=== PATIENT | female | born 1940 | race Caucasian/White ===

== ENCOUNTER 2017-02-01 13:15 | Inpatient (IN) | payer MEDICARE, OTHER ==
[2017-02-01 13:38] VITALS: BMI 29.4
[2017-02-04] MEDS ORDERED: CEFAZOLIN/Water 2 GM/20 ML SYRINGE ONE (09:44)
[2017-02-04] MEDS ORDERED: Sodium Chloride 0.9% 10 ML ONE (11:31)
[2017-02-04] MEDS ORDERED: Fentanyl 250 MCG/5 ML VIAL ONE (11:33)
[2017-02-04] MEDS ORDERED: Dexamethasone 20 MG/5 ML VIAL ONE (11:52)
[2017-02-04] MEDS ORDERED: Ondansetron HCl/PF 4 MG/2 ML Vial ONE (11:52)
[2017-02-04] MEDS ORDERED: Propofol 200 MG/20 ML VIAL ONE (11:52)
[2017-02-04] MEDS ORDERED: PHENYLEPHRINE-NS 100 MCG/ML 10 ML SYRINGE ONE (11:52)
[2017-02-04] MEDS ORDERED: Glycopyrrolate 0.2 MG/ML 5 ML SYRINGE ONE (11:52)
[2017-02-04] MEDS ORDERED: Promethazine HCl 25 MG/ML VIAL SLOW IVP PRN (12:58)
[2017-02-04] MEDS ORDERED: Ondansetron HCl/PF 4 MG/2 ML Vial IVP PRN ×2 (12:58→13:58)
[2017-02-04] MEDS ORDERED: Promethazine HCl 25 MG/ML VIAL IM PRN ×2 (12:58→13:58)
[2017-02-04] MEDS ORDERED: Fentanyl 100 MCG/2 ML VIAL ONE ×2 (13:31→14:19)
[2017-02-04] MEDS ORDERED: Promethazine HCl 25 MG/ML VIAL ONE (13:34)
[2017-02-04] MEDS ORDERED: HYDROcodone/Acetaminophen 10/325 mg Tablet PO PRN ×2 (13:49)
[2017-02-04] MEDS ORDERED: Acetaminophen/Codeine 30-300mg Tablet PO PRN ×2 (13:49)
[2017-02-04] MEDS ORDERED: tiZANidine HCl 4 MG TAB PO PRN (13:49)
[2017-02-04] MEDS ORDERED: Morphine 4 MG/ML Carpuject SLOW IVP PRN (13:49)
[2017-02-04] MEDS ORDERED: Milk Of Magnesia 30 ML UDCUP PO PRN (13:58)
[2017-02-04] MEDS ORDERED: Mag-Al 1200 mg/1200 mg/30 ML UDCUP PO PRN (13:58)
[2017-02-04] MEDS ORDERED: diphenhydrAMINE 25 MG CAP PO PRN (13:58)
[2017-02-04] MEDS ORDERED: Promethazine HCl 12.5 MG SUPP PR PRN (13:58)
[2017-02-04] MEDS ORDERED: diphenhydrAMINE 50 MG/ML VIAL IVP PRN (13:58)
[2017-02-04] MEDS ORDERED: Ketorolac Tromethamine 30 MG/ML VIAL ONE (14:00)
[2017-02-04] MEDS ORDERED: Cepastat Lozenges 1 LOZ PO PRN (14:00)
--- NOTE | 2017-02-04 15:35 | OP ---
DATE OF SURGERY: 02/04/2017 SURGEON: Lei Rizo M.D. SHOT BLAST EQUIPMENT OPERATOR: Harsha Johnston PA-C. PROCEDURE PERFORMED: Anterior cervical diskectomy C4-5, C5-C6 and C6-C7, interbody arthrodesis, int ravertebral biomechanical device, local morselized autograft, and anterior titanium instrumentation, demineralized bone matrix, C4-C7. PROCEDURE IN DETAIL: The patient was brought into the operating room, intubated. She was positione d supine with the head in modest extension on a gel-filled donut. Incision was made in the right pr ecervical area and dissecting medial to the sternocleidomastoid muscle. We identified the anterior cervical spine and our level was confirmed by x-ray. We debrided extensive anterior osteophytes, pl aced a distraction across the disk spaces and using the operating microscope and microdissection jadiel hniques, completely decompressed at C4-5, C5-6, and C6-7 levels from disk and osteophyte complex karla eath the posterior longitudinal ligament to the level of the dura. Next, the bony endplates were de corticated for the purpose of arthrodesis and appropriately sized intravertebral biomechanical PEEK devices were brought into the field, filled with demineralized bone matrix and local morselized auto graft, and tapped into place securely at C4-5, C5-6, and C6-7. Next, an anterior plate was brought in the field and secured to C5, C6, and C7 using two 14 mm screws at each level. The wound was then extensively irrigated, immaculate hemostasis was secured, and the wound was closed in anatomic laye rs over a drain.
[2017-02-04] MEDS ORDERED: Meclizine HCl 25 MG TAB PO PRN (16:58)
[2017-02-04] MEDS ORDERED: SUMAtriptan Succinate 50 MG TAB PO PRN (17:05)
[2017-02-04] MEDS: CEFAZOLIN/Water 2 GM/20 ML SYRINGE SLOW IVP SCH (17:35)
[2017-02-04] MEDS: Ketorolac Tromethamine 30 MG/ML VIAL IVP SCH (17:35)
[2017-02-04] MEDS: Sodium Chloride 0.9% 1,000 ML IV SCH (17:36)
[2017-02-04] MEDS: TROSPIUM 20 MG TABLET PO SCH (20:51)
[2017-02-04] MEDS ORDERED: Atorvastatin Calcium 20 MG TAB PO SCH (21:00)
[2017-02-04] MEDS ORDERED: Melatonin 3 MG TAB PO SCH (21:00)
[2017-02-04] MEDS ORDERED: Topiramate 25 MG TAB PO SCH (21:00)
[2017-02-05] MEDS: Ketorolac Tromethamine 30 MG/ML VIAL IVP SCH ×3 (00:19→12:21)
[2017-02-05] MEDS: CEFAZOLIN/Water 2 GM/20 ML SYRINGE SLOW IVP SCH (02:26)
[2017-02-05] MEDS: Sodium Chloride 0.9% 1,000 ML IV SCH (05:20)
[2017-02-05] MEDS ORDERED: POTASSIUM 99 MG PO SCH (09:00)
[2017-02-05] MEDS ORDERED: MSM PO SCH (09:00)
[2017-02-05] MEDS ORDERED: CHONDROITIN A PO SCH (09:00)
[2017-02-05] MEDS ORDERED: Cyanocobalamin (Vitamin B-12) 1,000 MCG TAB PO SCH (09:00)
[2017-02-05] MEDS ORDERED: Multivit, Therapeutic 1 TAB PO SCH (09:00)
[2017-02-05] MEDS ORDERED: GLUCOSAMINE PO SCH (09:00)
[2017-02-05] MEDS ORDERED: Fish Oil 1,000 MG CAP PO SCH (09:00)
[2017-02-05] MEDS ORDERED: Calcium Carbonate 500 MG TAB PO SCH (09:00)
[2017-02-05] MEDS: TROSPIUM 20 MG TABLET PO SCH (11:06)
[2017-02-05 16:42] VITALS: BP 152/83; TEMP 98.9
== END 2017-02-05 16:42 | disposition home or self-care (01) | DRG 30 ==
LOC: SURG A 02-04 08:23 → EDSTATUS 02-04 13:15 → SURG B 02-04 15:22
PROVIDERS: ADMIT Neurological Surgery; ATTEND Neurological Surgery
PROC: 0RG20A0 Fusion of 2 or more Cervical Vertebral Joints with Interbody Fusion Device, Anterior Approach, Anterior Column, Open Approach (ICD-10-PCS; principal; 2017-02-04)
DX: M54.12 Radiculopathy, cervical region (principal); M47.892 Other spondylosis, cervical region; I10 Essential (primary) hypertension; E78.5 Hyperlipidemia, unspecified
CPT/HCPCS: 76001; 80048; 85027; 85610; 85730; 93005; 93010; A4216; C1713; C1768; C1776; J1100; J1885; J2405; J2550; J2704; J3010; J3490

== ENCOUNTER 2017-02-21 10:12 | Outpatient (CLI) | payer MEDICARE, OTHER ==
--- NOTE | 2017-02-21 11:31 | RAD ---
CERVICAL SPINE 3 VIEWS: Date: 02/21/17 HISTORY: Postop follow-up. Spondylosis of cervical spine. FINDINGS: Anterior plate and screws transfix C4, C5, C6, and C7 levels. Interbody implants are present at these levels. Posterior alignment is normally maintained. Mild degenerative changes are noted. IMPRESSION: Postoperative changes of the cervical spine as described. POS: YARELIS
== END 2017-02-21 10:13 | disposition home or self-care (01) ==
LOC: TBSIIMAG 10:12
PROVIDERS: ATTEND Physician Assistant
DX: M47.812 Spondylosis without myelopathy or radiculopathy, cervical region (principal); Z98.890 Other specified postprocedural states
CPT/HCPCS: 72040

== ENCOUNTER 2017-04-03 14:36 | Outpatient (CLI) | payer MEDICARE, OTHER ==
--- NOTE | 2017-04-03 16:41 | RAD ---
CERVICAL SPINE THREE VIEWS: History: Cervical spine surgery. Follow up. Comparison: 02-21-17 FINDINGS: Anterior fixation plate remains in place at the C4-5-6-7 levels. Metallic markers associated with int erbody fusion material remain within the confines of the disc spaces at the post-operative levels. Ve rtebral body heights and alignment are maintained. Cervicothoracic junction is intact. IMPRESSION: Stable post-operative appearance of the cervical spine. POS: CORY
== END 2017-04-03 14:37 | disposition home or self-care (01) ==
LOC: TBSIIMAG 14:36
PROVIDERS: ATTEND Neurological Surgery
DX: M47.812 Spondylosis without myelopathy or radiculopathy, cervical region (principal); Z98.1 Arthrodesis status
CPT/HCPCS: 72040

== ENCOUNTER 2017-07-08 07:52 | Outpatient (CLI) | payer MEDICARE, OTHER | END 2017-07-08 07:53 | disposition home or self-care (01) | LOC: BICMAMMO 07:52 | PROVIDERS: ATTEND Family Medicine | DX: Z12.31 Encounter for screening mammogram for malignant neoplasm of breast (principal) | CPT/HCPCS: 77063; 77067 ==

== ENCOUNTER 2018-03-10 13:18 | Outpatient (CLI) | payer MEDICARE, OTHER ==
--- NOTE | 2018-03-10 16:08 | RAD ---
ABDOMEN 2 VIEWS: HISTORY: A 77-year-old female with a history of diarrhea and lower abdominal pain, nausea. FINDINGS: There is prominent dextroscoliosis of the lumbar vertebral column. Small opaque calculus in the uppe r pole of the right kidney, evidence for a renal calculus. No evidence for large or small bowel obst ruction. No free intraperitoneal air. Right lower lung calcified granuloma. IMPRESSION: Severe lumbar spondylosis and dextroscoliosis. A 0.5 cm right upper pole renal calculus. Old granul laila calcification in the right lower lobe. No bowel obstruction or free air or other acute process. POS: [facility]
== END 2018-03-10 13:19 | disposition home or self-care (01) ==
LOC: BICRAD 13:18
PROVIDERS: ATTEND Internal Medicine Gastroenterology
DX: R10.30 Lower abdominal pain, unspecified (principal); R19.7 Diarrhea, unspecified; R11.0 Nausea; M47.816 Spondylosis without myelopathy or radiculopathy, lumbar region; M41.9 Scoliosis, unspecified; N20.0 Calculus of kidney
CPT/HCPCS: 74019

== ENCOUNTER 2018-07-09 11:52 | Outpatient (CLI) | payer MEDICARE, OTHER ==
--- NOTE | 2018-07-09 13:08 | MMO ---
Bilateral MAMMO Bilat Screen [facility]. CLINICAL HISTORY: Patient is 77 years old and is seen for screening. The patient has no family history of breast cancer. The patient has no personal history of cancer. The patient has a history of right Excisional Biopsy at age 62 - benign. VIEWS: The views performed were: bilateral craniocaudal with tomosynthesis and bilateral mediolateral oblique with tomosynthesis. FILMS COMPARED: The present examination has been compared to prior imaging studies performed at [facility] on 07/08/2017, and at [facility] on 01/24/2012, 02/08/2014 and 05/24/2015. MAMMOGRAM FINDINGS: There are scattered fibroglandular densities. There are calcifications seen in the left breast. There are no suspicious masses, suspicious calcifications, or new areas of architectural distortion. IMPRESSION: THERE IS NO MAMMOGRAPHIC EVIDENCE OF MALIGNANCY. A ROUTINE FOLLOW-UP MAMMOGRAM IN 1 YEAR IS RECOMMENDED. THE RESULTS OF THIS EXAM WERE SENT TO THE PATIENT. ACR BI-RADS Category 2 - Benign finding MAMMOGRAPHY NOTE: 1. A negative mammogram report should not delay a biopsy if a dominant of clinically suspicious mass is present. 2. Approximately 10% to 15% of breast cancers are not detected by mammography. 3. Adenosis and dense breasts may obscure an underlying neoplasm.
== END 2018-07-09 11:53 | disposition home or self-care (01) ==
LOC: BICMAMMO 11:52
PROVIDERS: ATTEND Family Medicine
DX: Z12.31 Encounter for screening mammogram for malignant neoplasm of breast (principal)
CPT/HCPCS: 77063; 77067

== ENCOUNTER 2018-07-29 08:09 | Outpatient (CLI) | payer MEDICARE, OTHER ==
--- NOTE | 2018-07-29 08:52 | BD ---
EXAM: DEXA bone density examination HISTORY: Osteoporosis screening COMPARISON: 07/29/2018, 02/10/2014, 01/24/2012 and 07/03/2007 FINDINGS: L1--bone mineral density 1.213 g/sq cm; T score 2.0. Z score 4.2 L2--bone mineral density 1.100 g/sq cm; T score 0.7; Z score 3.1 L3--bone mineral density 1.143 g/sq cm; T score 0.5; Z score 3.1 L4--bone mineral density 1.322 g/sq cm; T score 2.4, Z score 5.0 Total L1-L4--bone mineral density 1.195 g/sq cm; T score 1.3, Z score 3.8 Left femoral neck--bone mineral density0.755; T score -0.8, Z score 1.3 Total proximal left femur--bone mineral density 1.090; T score 1.2, Z score 3.0 Right femoral neck-bone mineral density 0.709; T score -1.3, Z score 0.9 Total proximal right femur-bone mineral density 0.994; T score 0.4, Z score 2.3 This patient has a 10 year WHO fracture risk of a major osteoporotic fracture of 11% and of a hip fra cture of 1.9%. The bone mineral density of the right total proximal femur has declined 2.6% from the previous exam d ated 02/10/2014. IMPRESSION: Based on the WHO criteria, the patient's bone mineral density is consideredOsteopenic. T he patient is at moderate risk for fracture.
== END 2018-07-29 08:10 | disposition home or self-care (01) ==
LOC: BICMAMMO 08:09
PROVIDERS: ATTEND Family Medicine
DX: M85.80 Other specified disorders of bone density and structure, unspecified site (principal)
CPT/HCPCS: 77080

== ENCOUNTER 2018-08-11 18:00 | Emergency (ER) | payer MEDICARE, OTHER ==
[~2018-08-11 18:00] MED LIST: Iopamidol 370 76% 100 ML VIAL ONE
[2018-08-11] MEDS ORDERED: Ondansetron PF 4 MG/2 ML Vial ONE ×2 (18:46→20:26)
[2018-08-11] MEDS ORDERED: Morphine 4 MG/ML VIAL ONE ×2 (18:46→19:50)
[2018-08-11 18:55] LABS: #Basophils 0.1 thou/uL (0.0-0.2); #Eosinphils 0.2 thou/uL (0.0-0.7); #Lymphocytes 2.6 thou/uL (1.20-3.40); #Monocytes 0.8 thou/uL (0.11-0.59); #Neutrophils 5.2 thou/uL (1.40-6.50); %Basophils 1.6 % (0.0-1.0); %Eosinophils 1.8 % (0.0-10.0); %Lymphocytes 29.3 % (21.0-51.0); %Monocytes 8.7 % (0.0-10.0); %Neutrophils 58.6 % (42.0-75.0); Hemoglobin 13.1 g/dL (12.0-16.0); Mean Corpuscular HGB CONC 33.1 g/dL (32.0-36.0); Mean Corpuscular Hemoglobin 33.3 pg (27.0-31.0); Mean Platelet Volume 7.2 fL (7.4-10.4); Platelet Count 246 thou/uL (130-400); RBC Distribution Width 12.1 % (11.5-14.5); Red Blood Cell (RBC) Count 3.93 mill/uL (4.20-5.40); White Blood Cell (WBC) Count 8.9 thou/uL (4.8-10.8)
[2018-08-11 19:02] LABS: ALT (SGPT) 27 U/L (8-55); AST (SGOT) 28 U/L (5-34); Albumin 4.4 g/dL (3.4-4.8); Alkaline Phosphatase 90 U/L (40-150); Anion Gap 16 mmol/L (10-20); BUN (Urea Nitrogen) 27 mg/dL (9.8-20.1); Bilirubin, Total 0.4 mg/dL (0.2-1.2); Calc. Creatinine Clearance 0 mL/min (70-130); Calcium 9.9 mg/dL (7.8-10.44); Carbon Dioxide 22 mmol/L (23-31); Chloride 107 mmol/L (98-107); Estimated GFR-MDRD 50; Globulin 3.4 g/dL (2.4-3.5); Glucose 163 mg/dL (83-110); Lipase 34 U/L (8-78); Potassium 4.1 mmol/L (3.5-5.1); Protein, Total 7.8 g/dL (6.0-8.3); Sodium 141 mmol/L (136-145)
--- NOTE | 2018-08-11 19:34 | CT ---
Contrast-enhanced CT abdomen pelvis. HISTORY: Right lower quadrant pain. TECHNIQUE: Contrast-enhanced CT abdomen and pelvis obtained after administration of IV contrast. Unfo rtunately oral contrast was not given. FINDINGS: Images demonstrate severe dextroscoliosis and lower lumbar degenerative changes. The lung bases demonstrate areas of bibasilar interstitial changes. The liver and spleen are unremarkable. The gallbladder contains a noncalcified approximately 2.8 cm oval lesion possibly presenting gallston e or gallbladder neoplasm. The pancreas is unremarkable. Adrenal glands unremarkable. Right-sided hydroureteronephrosis seen with obstructing proximal right ureteral calculus diameter jalen suring 6 mm. There is extensive fat stranding and surrounding edema surrounding the right kidney and ureter. Nonobstructing left renal calculi seen. The small bowel is unremarkable. Extensive colonic diverticulosis is present. IMPRESSION: Obstructing proximal right ureteral calculus. Transcribed Date/Time: 08/11/2018 8:40 PM
[2018-08-11] MEDS ORDERED: Ketorolac Tromethamine 30 MG/ML VIAL ONE (19:50)
[2018-08-11 20:26] LABS: Bilirubin Negative (Negative); Blood, Urine Trace (Negative); Clarity Slightly Cloudy (Clear); Glucose, Urine (Dipstick) Negative (Negative); Leukocyte Negative (Negative); Nitrite Negative (Negative); Protein, Urine (Dipstick) Negative (Neg-Trace); Specific Gravity, Urine 1.015 (1.005-1.030); Urobilinogen 0.2 mg/dL (0.2-1.0)
[2018-08-11 20:35] LABS: Squamous Epithelial 0-3 HPF (0-3); WBC/HPF 0-3 HPF (0-3)
[2018-08-11 20:36] LABS: Bacteria/HPF 1+ HPF (None Seen); Hyaline Casts/LPF NONE SEEN LPF (0-3 Hyaline)
== END 2018-08-11 21:03 | disposition home or self-care (01) ==
LOC: SCSER 18:00
DX: N13.2 Hydronephrosis with renal and ureteral calculous obstruction (principal); K21.9 Gastro-esophageal reflux disease without esophagitis; E78.5 Hyperlipidemia, unspecified; G43.909 Migraine, unspecified, not intractable, without status migrainosus; I10 Essential (primary) hypertension
CPT/HCPCS: 74177; 80053; 81003; 81015; 83690; 85025; 87086; 96361; 96374; 96375; 96376; J1885; J2270; J2405; Q9967

== ENCOUNTER 2018-08-12 14:54 | Outpatient (CLI) | payer MEDICARE, OTHER ==
[2018-08-12 18:18] LABS: Prothrombin Time 13.7 SEC (12.0-14.7)
[2018-08-12 18:19] LABS: PTT 28.2 SEC (22.9-36.1)
== END 2018-08-12 14:55 | disposition home or self-care (01) ==
LOC: LABBT 14:54
PROVIDERS: ATTEND Urology
DX: Z01.818 Encounter for other preprocedural examination (principal); N20.0 Calculus of kidney
CPT/HCPCS: 85610; 85730; 93005; 93010

== ENCOUNTER 2018-08-13 08:48 | Day surgery (SDC) | payer MEDICARE, OTHER ==
[2018-08-12 16:28] VITALS: BMI 28.3
[2018-08-13] MEDS ORDERED: Ampicillin 2 GM VIAL ONE (10:22)
[2018-08-13] MEDS ORDERED: Levofloxacin 500 mg/D5W 100 ml Premix Bag ONE (10:22)
[2018-08-13] MEDS ORDERED: Sodium Chloride 0.9% 100 ML ONE (10:22)
[2018-08-13 10:38] LABS: INR-International Normal Ratio 1.1; PTT 28.8 SEC (22.9-36.1); Prothrombin Time 14.1 SEC (12.0-14.7)
[2018-08-13] MEDS ORDERED: Iothalamate Meglumine 60% 50 ML VIAL FS ONE (11:34)
--- NOTE | 2018-08-13 12:05 | RAD ---
ABDOMEN ONE VIEW: HISTORY: Follow up right ureteral calculus. Preoperative evaluation. FINDINGS: The previously noted right upper ureteral calculus seen on prior CT scan, on 08/11/2018, may well ove rly the lumbar spine, which is significantly scoliotic, convexed to the right side. Evidence for sma ll, nonobstructing left renal calculi. IMPRESSION: 1. Previously noted right ureteral calculus may well be obscured by the overlying dextroscoliotic mauricio mbar spine. 2. Small, nonobstructing left renal calculi. 3. A small phlebolith is noted just at the right lateral aspect, adjacent to L4. POS: OFF
[2018-08-13] MEDS ORDERED: Phenazopyridine HCl 97.5 MG TABLET ONE (12:56)
--- NOTE | 2018-08-13 13:09 | RAD ---
Retrograde ureterogram intraoperative fluoroscopy HISTORY: Ureteral obstruction. FINDINGS: Intraoperative fluoroscopy was provided for retrograde study is performed by Dr. Marie garcia. Spot fluoroscopic images show contrast opacification of a mildly distended right renal collecting system and ureter. Final image shows double pigtail catheter overlying the course of the r ight ureter with decompression of the renal collecting system. Fluoroscopy time 0.3 minutes.
[2018-08-13] MEDS ORDERED: Promethazine HCl 25 MG/ML VIAL ONE (14:11)
[2018-08-13] MEDS ORDERED: Ondansetron PF 4 MG/2 ML Vial ONE (15:21)
[2018-08-13] MEDS ORDERED: ePHEDrine 50 MG/ML VIAL ONE (15:21)
[2018-08-13] MEDS ORDERED: PROPOFOL 200 MG/20 ML VIAL ONE (15:21)
[2018-08-13] MEDS ORDERED: Lidocaine 1% PF 5 ML VIAL ONE (15:21)
--- NOTE | 2018-08-13 16:20 | OP ---
DATE OF PROCEDURE: 08/13/2018 PREOPERATIVE DIAGNOSES: 1. A 77-year-old female with history of right hydronephrosis, secondary to proximal ureteral stone 6-7 mm at L2 with perinephric stranding. 2. Left punctate nonobstructing renal calculi, 3-4 in number. No evidence of left hydronephrosis. 3. Severe scoliosis. 4. Right L3 extra ureteral calcific density. POSTOPERATIVE DIAGNOSES: 1. A 77-year-old female with history of right hydronephrosis, secondary to proximal ureteral stone 6-7 mm at L2 with perinephric stranding. 2. Left punctate nonobstructing renal calculi, 3-4 in number. No evidence of left hydronephrosis. 3. Severe scoliosis. 4. Right L3 extra ureteral calcific density. PROCEDURES PERFORMED: 1. Cystoscopy. 2. Right retrograde pyelogram. 3. A 6 x 24 double-J ureteral stent placement. 4. Retrieval of bladder stone. ANESTHESIA: General. COMPLICATIONS: None apparent. DISPOSITION: To recovery room in stable condition. INDICATIONS FOR PROCEDURE AND HISTORY: Ms. Cristobal is a 77-year-old female with history of kidney stone. She recently transitioned care in April. As she is known to have kidney stones, she was advised regarding CT; however, not yet obtained. However, she did present to an emergency room on 08/11 due to right flank pain, demonstrating 6- to 7-mm right proximal ureteral stone with hydronephrosis , perinephric stranding, and left nonobstructing renal calculi. As her UA suspicious for UTI component, I informed her to proceed with ureteral stent placement and elective ureteroscopy and laser lithotripsy at a later date. Risks and complications of the procedure were reviewed with her in detail including, but not limited to, bleeding, pain, infection, injury to adjacent organs, urosepsis. Final urine culture is pending. Thus far, preliminary urine culture has been negative. DESCRIPTION OF PROCEDURE: After an informed consent was signed, the patient was taken to the operating room and placed in a dorsal lithotomy position with the genital area prepped and draped in the usual surgical sterile fashion. A 21- Bahamian cystoscope was utilized for cystoscopy. Upon entering the bladder, the trigone was deviated due to grade 3-4 cystocele. Bimanual pressure had to be utilized to see the trigone with a 30-degree lens. With the reduction of her cystocele, her UO was identified and an open-ended catheter was passed. A retrograde pyelogram demonstrated some hydronephrotic component. She does have an evidence of extra ureteral retroperitoneal calcific density at the level of L3 on retrograde pyelogram. This is outside the ureter. It appeared that there was a faint calcific density, which appeared to have migrated into the renal pelvis; however, this was somewhat hazy with contrast. A 0.035 Sensor wire was able to be passed without difficulty and a 6 x 24 double-J ureteral was passed. There was mild resistance due to her scoliosis; however, the stent was passed atraumatically with no significant issues. Final coil was seen in the renal pelvis and distal coil with adequate redundancy in the bladder. There was a tiny 2-mm stone in the bladder, which was retrieved for chemical analysis. The bladder completely emptied. She tolerated the procedure well. She will continue her ciprofloxacin, 7-day course provided so far as final culture needs to be reviewed. She will follow up with me tomorrow to preop for stone treatment, ureteroscopy, laser lithotripsy at a later date. Possible tentative date next Saturday if culture remains negative. She is discharged with ciprofloxacin refill and has been provided [place] pain medication yesterday in our office. Continue Detrol due to pre-existing OAB. Job ID: [id number] MTDD
== END 2018-08-13 16:25 | disposition home or self-care (01) ==
LOC: SDC 08:48
PROVIDERS: ATTEND Urology
PROC: 0T9780Z Drainage of Left Ureter with Drainage Device, Via Natural or Artificial Opening Endoscopic (ICD-10-PCS; principal; 2018-08-13)
PROC: 0TCB8ZZ Extirpation of Matter from Bladder, Via Natural or Artificial Opening Endoscopic (ICD-10-PCS; 2018-08-13)
PROC: 0T778DZ Dilation of Left Ureter with Intraluminal Device, Via Natural or Artificial Opening Endoscopic (ICD-10-PCS; 2018-08-13)
DX: N13.2 Hydronephrosis with renal and ureteral calculous obstruction (principal); N21.0 Calculus in bladder; I10 Essential (primary) hypertension; M41.9 Scoliosis, unspecified; E78.5 Hyperlipidemia, unspecified; Z79.82 Long term (current) use of aspirin; Z79.899 Other long term (current) drug therapy
CPT/HCPCS: 36415; 74018; 74420; 82365; 85610; 85730; 88300; C1758; C1769; J0290; J1956; J2001; J2405; J2550; J2704; J3490; Q9961

== ENCOUNTER → 2018-08-20 | Day surgery (SDC) | payer MEDICARE, OTHER ==
[2018-08-14 12:14] VITALS: BMI 28.3
[~2018-08-20] MED LIST changes: +Ampicillin 2 GM VIAL ONE; +Dexamethasone 20 MG/5 ML VIAL ONE; +Fentanyl 100 MCG/2 ML VIAL ONE; +Glycopyrrolate 0.2 MG/ML 5 ML SYRINGE ONE; -Iopamidol 370 76% 100 ML VIAL ONE; +Iothalamate Meglumine 60% 50 ML VIAL FS ONE; +Levofloxacin 500 mg/D5W 100 ml Premix Bag ONE; +Lidocaine 1% PF 5 ML VIAL ONE; +Ondansetron PF 4 MG/2 ML Vial ONE; +Oxybutynin 5 MG TAB ONE; +PROPOFOL 200 MG/20 ML VIAL ONE; +Phenazopyridine HCl 97.5 MG TABLET ONE; +Promethazine HCl 25 MG/ML VIAL ONE; +Rocuronium Bromide 10 MG/ML (10ML VIAL) ONE; +Sodium Chloride 0.9% 100 ML ONE; +ePHEDrine 50 MG/ML VIAL ONE
--- NOTE | 2018-08-20 10:42 | RAD ---
TWO VIEWS CHEST: Comparison: None. History: Pre-operative radiograph. FINDINGS: Two views of the chest show normal sized cardiomediastinal silhouette. There is no evidence of consol idation, mass, or pleural effusion. Degenerative changes and post-surgical changes are seen in the sp ine. IMPRESSION: No evidence of acute cardiopulmonary disease. POS: H
--- NOTE | 2018-08-20 10:44 | RAD ---
KUB: Date: 08/20/18 HISTORY: Preoperative evaluation. FINDINGS/IMPRESSION: Comparison made with exam of 08/13/18. There has been interval placement of a right-sided ureteral stent. There is a questionable calculus i n the right proximal ureter at L3-4 level. Tiny calcifications along the distal aspect of the stent likely correspond to the pelvic phleboliths on the CT scan of 08/11/18. There are a couple of calcific densities in the projection of the right kidney. No right renal calcul i seen on the CT scan of 08/11/18. The left renal calculi noted on the CT scan are likely obscured by bowel contents. There are degenerative changes with dextroscoliosis of the lumbar spine. POS: YARELIS
--- NOTE | 2018-08-20 12:42 | OP ---
DATE OF PROCEDURE: 08/20/2018 PREOPERATIVE DIAGNOSES: A 77-year-old female with; 1. Right proximal ureteral calculi with hydronephrosis, 6 mm at the level of L2. 2. Right extra-ureteral retroperitoneal calcification adjacent to L4. 3. Left punctate nonobstructing renal lithiasis, about 3-4 in number, nonobstructing. POSTOPERATIVE DIAGNOSES: A 77-year-old female with; 1. Right proximal ureteral calculi with hydronephrosis, 6 mm at the level of L2. 2. Right extra-ureteral retroperitoneal calcification adjacent to L4. 3. Left punctate nonobstructing renal lithiasis, about 3-4 in number, nonobstructing. PROCEDURES PERFORMED: 1. Cystoscopy. 2. Right retrograde pyelogram. 3. Dilation of right intramural ureter. 4. Rigid ureteroscopy. 5. Flexible ureteroscopy. 6. Pyeloscopy. 7. Laser lithotripsy of renal calculi. 6 x 24 double-J ureteral stent exchange on [facility]. ANESTHESIA: General. COMPLICATIONS: None apparent. DISPOSITION: To recovery room in stable condition. SPECIMEN: Stone for chemical analysis. INDICATIONS FOR PROCEDURE AND HISTORY: Ms. Cristobal is a 77-year-old female, who came to establish care with ks due to history of kidney stones. She subsequently had a CT in the emergency room on 08/11, demonstrating right hydronephrosis due to 6- mm proximal ureteral calculi at the level of L2 with perinephric stranding and hydronephrosis. She has multiple left punctate nonobstructing renal calculi. Of note, she has right extra-ureteral retroperitoneal calcification at the level of L4, not within the ureter. She underwent ureteral stent placement and presents today for ureteroscopy and laser lithotripsy. Preop KUB demonstrates proximal migration of the right proximal ureteral stone into the mid upper pole. The right extra-ureteral calcification seen on KUB and again this is outside the ureter. Risks and complications and indications for the procedure were reviewed with her in detail including, but not limited to, bleeding, pain, infection, injury to adjacent organs, urosepsis, possible secondary procedure, ureteral, renal, and bladder injury, stricture formation was reviewed and she desired to proceed without reservation. DESCRIPTION OF PROCEDURE: After an informed consent was signed, the patient was taken to the operating room, placed in a dorsal lithotomy position with the genital area prepped and draped in the usual surgical sterile fashion. Bilateral RAJENDRA hose SCDs and broad-spectrum antibiotics were provided including mitral valve prolapse prophylaxis with 2 g of ampicillin. A 21-Singaporean cystoscope was utilized for cystoscopy, retrieved the previous existing ureteral stent, and this was removed to the level of the meatus. A 0.035 Sensor wire was passed through the stent into the right upper pole. The stent was completely removed. At this time, we attempted to pass a 10-Singaporean dual-lumen access sheath; however, there was some resistance at the intramural ureter. Therefore, I did not forcibly engage. At this time, we transitioned to a rigid ureteroscope to stage the distal ureter to rule out occult urolithiasis. The ureter appeared to be grossly unremarkable, although she did have a stent. It appears that she is not passively dilated enough. There was no trauma to the intramural ureter itself. I was able to negotiate the rigid ureteroscope past this and clear her [id number]-[id number] ureter without any stone debris. The ureteroscope was then subsequently removed. As there was a narrowing of the intramural ureter, not allowing the Navigator of the 10-Singaporean catheter to pass , we then subsequently transitioned back to a cystoscope and using a [employer] 4-cm 12-Singaporean balloon dilator, we dilated the intramural ureter and just proximal to this in 2 segments. Pressure was held for about 1 to 2 minutes sequentially. After subsequent dilatation, which was performed under fluoroscopic guidance, the balloon was deflated. Subsequently, I was able to pass a 10-Singaporean dual-lumen access sheath without any issues to the level of the proximal ureter. A second safety wire, 0.035 Sensor wire, was then passed into the right upper pole. An 11/13-Singaporean x 28 cm Navigator was subsequently passed without any resistance. This was passed to the level of the proximal ureter UPJ region. Flexible ureteroscope was then advanced. I saw the stone in the left upper to mid pole. It appeared to have 2 stones adjacent to them and we laser lithotripsied the stone with 200 micron laser fiber at the setting. Using a Zero Tip Nitinol basket, stone fragments were retrieved and a fragment of it was sent for chemical analysis. Pyeloscopy demonstrated renal papilla Krishna plaque, consistent with recurrent stone former. I did not see any other further stone nidus amenable to treatment. The ureter was surveyed, which demonstrated no evidence of ureteral mucosal trauma nor further ureteral calculi of concern. I re-staged the intramural ureter, which demonstrated changes consistent with the dilatation, although she does not have obvious ureteral stricture in the intramural ureter, she required dilatation to allow passage of navigators and ureteroscope. There was no evidence of ureteral mucosa perforation of concern. A 6 x 24 double-J ureteral stent was passed without difficulty and dangler was left in situ. Bladder completely emptied. Good coil was seen in the kidney and bladder. She tolerated the procedure well and transported to the recovery room in stable condition. She is discharged with Colace 100 mg 1 p.o. b.i.d., AZO p.r.n., amoxicillin x1 6 hours after procedure for endocarditis prophylaxis and ciprofloxacin until followup appointment one p.o. b.i.d. She was provided [place] 5/325 #30, 1-2 p.o. q.6-8 h. p.r.n. She will return to clinic next for stent pull on dangler. Job ID: [id number] [facility]
--- NOTE | 2018-08-20 15:18 | RAD ---
RIGHT SIDED RETROGRADE PYELOGRAM: Date: 08/20/18 HISTORY: Stent removal. FINDINGS/IMPRESSION: Comparison made with KUB from same date. 6 spot fluoroscopic views from a right retrograde pyelogram demonstrate interval replacement of the r ight ureteral stent since the earlier exam of the same date. The final image demonstrates a double pi gtail catheter in the right ureter with incomplete looping of the distal pigtail. POS: CORY
== END ==
LOC: SDC 07:40
PROVIDERS: ATTEND Urology
PROC: 0TF38ZZ Fragmentation in Right Kidney Pelvis, Via Natural or Artificial Opening Endoscopic (ICD-10-PCS; principal; 2018-08-20)
PROC: 0T768DZ Dilation of Right Ureter with Intraluminal Device, Via Natural or Artificial Opening Endoscopic (ICD-10-PCS; 2018-08-20)
DX: N13.2 Hydronephrosis with renal and ureteral calculous obstruction (principal); I10 Essential (primary) hypertension; G43.909 Migraine, unspecified, not intractable, without status migrainosus; E78.5 Hyperlipidemia, unspecified; M47.816 Spondylosis without myelopathy or radiculopathy, lumbar region; M41.20 Other idiopathic scoliosis, site unspecified; Z79.82 Long term (current) use of aspirin; Z79.899 Other long term (current) drug therapy
CPT/HCPCS: 52356; 71046; 74018; 74420; 82365; 88300; C1758; C1769; J0290; J1100; J1956; J2001; J2405; J2550; J2704; J3010; J3490; Q9961

== ENCOUNTER 2018-08-28 15:55 | Outpatient (CLI) | payer MEDICARE, OTHER ==
--- NOTE | 2018-08-28 16:24 | CT ---
CT abdomen and pelvis noncontrast HISTORY: Renal stones. Recent lithotripsy and stent removal. Worsening right flank pain. COMPARISON: 08/11/2018. FINDINGS: There is [id number] distention of the right renal collecting system and ureter to the ureterovesicular junction, where no stone or other hyperdense abnormality is apparent. Small phleboliths are evident within the retroperitoneum and pelvis outside of the course of each urinary t ract. Within a calyx of the posterior aspect of the right kidney, a tiny stone and very small amount of winston cific debris remain. The 7 small calcifications within nondilated calyces of the left kidney are stable. Small angiomyolip laila at the inferior pole of the left kidney and small right renal cyst are stable. Lack of contrast limits evaluation for other abnormalities. 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 Hyperdense stone within the gallbladder lumen with persistent gallbladder distention. There are subtle stranding in the right perirenal and periureteral fat with some stranding around the urinary bladder also, likely related to recent instrumentation. Small amount of gas within the nondependent portion of the bladder. IMPRESSION: While there is mild right hydroureteronephrosis, there is no stone apparent or other caus e evident. Probably residual edema from recent instrumentation. Tiny right renal calculus remains. Nonobstructing left renal calculi. Cholelithiasis. Other chronic-type findings are stable. Findings were discussed with Dr. Padron at 1606 hours. Code CR.
== END 2018-08-28 15:56 | disposition home or self-care (01) ==
LOC: CT 15:55
PROVIDERS: ATTEND Urology
DX: N20.2 Calculus of kidney with calculus of ureter (principal); N13.30 Unspecified hydronephrosis; K80.20 Calculus of gallbladder without cholecystitis without obstruction; D17.71 Benign lipomatous neoplasm of kidney; N28.89 Other specified disorders of kidney and ureter; N28.1 Cyst of kidney, acquired
CPT/HCPCS: 74176

== ENCOUNTER 2018-08-28 17:45 | Inpatient (IN) | payer MEDICARE, OTHER ==
[2018-08-28] MEDS ORDERED: Mag-Al 1200 mg/1200 mg/30 ML UDCUP PO PRN (18:08)
[2018-08-28] MEDS ORDERED: Promethazine HCl 25 MG SUPP PR PRN (18:08)
[2018-08-28] MEDS ORDERED: Zolpidem Tartrate 5 MG TAB PO PRN (18:08)
[2018-08-28] MEDS ORDERED: HYDROcodone/Acetaminophen 7.5/325 mg Tablet PO PRN ×2 (18:08)
[2018-08-28] MEDS ORDERED: Morphine 4 MG/ML VIAL SLOW IVP PRN (18:08)
[2018-08-28] MEDS ORDERED: hydrALAZINE 20 MG/ML VIAL SLOW IVP PRN ×2 (18:08)
[2018-08-28] MEDS ORDERED: diphenhydrAMINE 25 MG CAP PO PRN (18:08)
[2018-08-28] MEDS ORDERED: Morphine 2 MG/ML SYRINGE SLOW IVP PRN (18:18)
[2018-08-28 18:42] LABS: #Basophils 0.1 thou/uL (0.0-0.2); #Eosinphils 0.3 thou/uL (0.0-0.7); #Lymphocytes 1.9 thou/uL (1.20-3.40); #Monocytes 1.7 thou/uL (0.11-0.59); #Neutrophils 11.8 thou/uL (1.40-6.50); %Basophils 0.5 % (0.0-1.0); %Eosinophils 1.8 % (0.0-10.0); %Lymphocytes 12.2 % (21.0-51.0); %Monocytes 10.5 % (0.0-10.0); Hemoglobin 11.5 g/dL (12.0-16.0); Mean Corpuscular HGB CONC 32.8 g/dL (32.0-36.0); Mean Corpuscular Hemoglobin 33.3 pg (27.0-31.0); Mean Platelet Volume 6.5 fL (7.4-10.4); Platelet Count 346 thou/uL (130-400); RBC Distribution Width 11.2 % (11.5-14.5); Red Blood Cell (RBC) Count 3.45 mill/uL (4.20-5.40); White Blood Cell (WBC) Count 15.7 thou/uL (4.8-10.8)
[2018-08-28 19:02] LABS: Anion Gap 13 mmol/L (10-20); BUN (Urea Nitrogen) 18 mg/dL (9.8-20.1); Calc. Creatinine Clearance 0 mL/min (70-130); Calcium 9.6 mg/dL (7.8-10.44); Carbon Dioxide 24 mmol/L (23-31); Chloride 99 mmol/L (98-107); Estimated GFR-MDRD 69; Glucose 130 mg/dL (83-110); Potassium 4.2 mmol/L (3.5-5.1); Sodium 132 mmol/L (136-145)
[2018-08-28] MEDS ORDERED: Ondansetron PF 4 MG/2 ML Vial SLOW IVP PRN (20:25)
[2018-08-28] MEDS: Sodium Chloride 0.9% 1,000 ML IV SCH (20:30)
[2018-08-28] MEDS: Docusate 100 MG CAP PO SCH (20:30)
[2018-08-28] MEDS: Famotidine/PF 20 mg/2ml Vial SLOW IVP SCH (20:30)
[2018-08-28] MEDS: cefOXitin 1.5 GM in Sodium Chloride 0.9% 100 ML IVPB SCH (20:31)
[2018-08-28] MEDS ORDERED: ZEAXANTHIN EXT PO SCH (21:00)
[2018-08-28] MEDS ORDERED: Meclizine HCl 25 MG TAB PO PRN (21:00)
[2018-08-28] MEDS ORDERED: LUTEIN EXTRACT PO SCH (21:00)
[2018-08-28 22:50] VITALS: BMI 28.3
[2018-08-28 23:49] LABS: Bilirubin Negative (Negative); Blood, Urine Small (Negative); Clarity CLEAR (Clear); Glucose, Urine (Dipstick) Negative (Negative); Leukocyte Small (Negative); Nitrite Positive (Negative); Protein, Urine (Dipstick) Negative (Neg-Trace); Specific Gravity, Urine 1.005 (1.002-1.036); pH, Urine 6.5 (5.0-9.0)
[2018-08-28 23:52] LABS: Bacteria/HPF 4+ HPF (None Seen); Hyaline Casts/LPF 0-3 HYALINE CAST LPF (0-3 Hyaline); RBC/HPF 0-3 HPF (0-3); Squamous Epithelial None Seen HPF (0-3)
--- NOTE | 2018-08-29 02:02 | CON ---
DATE OF CONSULTATION: 08/28/2018 PRIMARY CARE PHYSICIAN: Shanika Vallecillo MD. HISTORY OF PRESENT ILLNESS: Ms. Cristobal is a 77-year-old female who presented to establish care with me due to history of recurrent kidney stone. She was advised regarding surveillance imaging. However, she was provided a work-in appointment as she presented to the emergency room demonstrating right 7 mm proximal ureteral calculi with perinephric stranding. She has multiple left nonobstructing renal calculi. She underwent cysto, right retrograde stent, underwent subsequent ureteroscopy, laser lithotripsy uneventfully on August 20, 2018. She was seen in my office this morning for stent pull on as there was endoscopic clearance. However, she called back in the afternoon complaining of right flank pain with nausea. Therefore, CT stone protocol was obtained. CT demonstrates resolution of her ureteral calculi. There was no evidence of ureteral calculi, however, she has hydroureteronephrosis to the level of the UVJ. This is most likely due to mucosal edema. We discussed options of observation with pain management as there is no stone nidus of concern versus observation admission and replacement of stent. Due to significant pain, she desires admission to the hospital. She has been afebrile. Pre-cystoscopy urine culture negative. PAST MEDICAL HISTORY: Includes hypertension, severe scoliosis; mitral valve prolapse using prophylaxis; history of chest pain, however, normal stress test and echo; overactive bladder; diverticulosis; history of lymphocytic colitis; migraines; hyperlipidemia; vitamin D deficiency; and recurrent kidney stones. PAST SURGICAL HISTORY: Total abdominal hysterectomy; BSO secondary to endometriosis; colonoscopy 2001, 2012, 2015; cervical disk surgery, January 2017; left knee cartilage repair; cystoscopy, left retrograde, 6 x 24 stent, retrieval of small bladder stone on August 13, 2018; cysto, right, dilation of ureter; ureteroscopy; pyeloscopy; laser lithotripsy, 6 x 24 double-J ureteral stent exchange, August 20, 2018; August 28, 2018 stent removal on . FAMILY HISTORY: Positive for lymphoma, CVA, prediabetic siblings. SOCIAL HISTORY: Nonsmoker. She lives with her spouse who is also a patient of mine. HOME MEDICATIONS: Include; 1. [place] 5/325. 2. Colace. 3. Azo. 4. Ciprofloxacin, which she recently discontinued. 5. Simvastatin. 6. Sumatriptan. 7. Zofran. 8. Detrol LA. 9. Meclizine. 10. Fish oil. 11. Glucosamine. 12. Vitamin D. 13. Enalapril. 14. Metoprolol. 15. Procardia. ALLERGIES: NO KNOWN DRUG ALLERGIES. PHYSICAL EXAMINATION: VITAL SIGNS: Today in my office, she is afebrile. Pain rated 8/10. GENERAL: The patient is somewhat in distress due to right lower quadrant abdominal discomfort; however, conversational, unable to ambulate. HEENT: Grossly unremarkable. HEART: Consistent with murmur. LUNGS: Clear. ABDOMEN: Soft, subjective discomfort in the right lower quadrant with no rigidity, no rebound. : Demonstrates atrophic vaginitis. EXTREMITIES: No cyanosis, clubbing, or edema. PERTINENT IMAGING STUDIES: 1. CT, August 11, demonstrates right hydroureteronephrosis with proximal right ureteral calculi 6 to 7 mm at L2 with perinephric stranding. There is an extra ureteral calculi in the right retroperitoneum. Left nonobstructing renal calculi, multiple, punctate, 3 to 4 in number, largest 6 to 7 mm, linear. 1. CT stone protocol, August 28, 2018, demonstrates right hydroureteronephrosis to the level of the bladder with no evidence of ureteral calculi. Faint punctate calcific density in the right lower pole. Stable multiple left renal lithiasis, punctate in caliber, largest linear about 7 mm. No evidence of left hydronephrosis. 2. KUB previously demonstrates severe lumbar scoliosis. PERTINENT LABORATORY DATA: White count, August 11, is 8.9; hemoglobin 13; and platelet 246. INR, PTT are unremarkable. Creatinine is 1.0. Urinalysis, August 11, demonstrates 4 to 6 rbc's. Culture negative. IMPRESSION AND PLAN: Ms. Cristobal is a 77-year-old female, with history of recurrent kidney stone, recently presented with right proximal ureteral calculi discomfort status post staged stent, ureteroscopy, laser lithotripsy. We did have some difficulty passing a ureteroscope in the intramural ureter despite having an indwelling ureteral stent. She was balloon dilated in the intramural ureter. Stone retrieval was uneventful, with resolution of stone nidus of concern. She has flank pain most likely due to mucosal edema. Recommend observation, pain management, I will reassess her pain tomorrow. If she is pain-free, I will observe. If she has persistent discomfort, she is advised regarding cysto, right retrograde, replacement of stent. We will obtain labs on arrival, recheck UA C and S. Broad-spectrum antibiotics will be provided. Job ID: [id number] MTDD
[2018-08-29] MEDS: Sodium Chloride 0.9% 1,000 ML IV SCH ×3 (04:31→21:11)
[2018-08-29] MEDS: cefOXitin 1.5 GM in Sodium Chloride 0.9% 100 ML IVPB SCH ×3 (04:31→20:59)
[2018-08-29 05:26] LABS: Hemoglobin 10.4 g/dL (12.0-16.0); Mean Corpuscular HGB CONC 33.1 g/dL (32.0-36.0); Mean Corpuscular Hemoglobin 34.2 pg (27.0-31.0); Mean Platelet Volume 8.5 fL (7.4-10.4); Platelet Count 249 thou/uL (130-400); RBC Distribution Width 12.3 % (11.5-14.5); Red Blood Cell (RBC) Count 3.03 mill/uL (4.20-5.40); White Blood Cell (WBC) Count 9.2 thou/uL (4.8-10.8)
[2018-08-29 05:33] LABS: Anion Gap 12 mmol/L (10-20); BUN (Urea Nitrogen) 13 mg/dL (9.8-20.1); Calc. Creatinine Clearance 86 mL/min (70-130); Calcium 8.9 mg/dL (7.8-10.44); Carbon Dioxide 22 mmol/L (23-31); Chloride 106 mmol/L (98-107); Estimated GFR-MDRD 89; Glucose 101 mg/dL (83-110); Potassium 4.2 mmol/L (3.5-5.1); Sodium 136 mmol/L (136-145)
--- NOTE | 2018-08-29 07:33 | PRG ---
DATE OF SERVICE: 08/29/2018 SUBJECTIVE: The patient has persistent right lower quadrant pain, had some nausea. Her last pain medication was last night, however, feels that her pain is coming back. She denies chills or fever. OBJECTIVE: VITAL SIGNS: Stable. She is afebrile with temperature of 98, pulse 91, respiratory rate 16, oxygen saturation 95, and blood pressure 108/71. ABDOMEN: Soft. Subjective discomfort in the right lower quadrant. PERTINENT LABORATORY DATA: White count decreased from 15 to 9.2, hemoglobin 10 , and platelets 249. No significant shift. Creatinine stable at 0.6, sodium 136. UA demonstrates small blood, positive nitrites, small leukocytes, 0 to 3 rbc's, 7 to 10 wbc's, no epithelials, and 4+ bacteria. Urine culture is pending. IMPRESSION AND PLAN: Ms. Cristobal is a pleasant 77-year-old female with history of recurrent urolithiasis, she underwent right ureteroscopy, laser lithotripsy, dilation of right intramural ureter on August 20. Status post stent pull, however, developed intractable right flank pain. Staging CT demonstrates no residual ureteral stone nidus of concern, however, has hydroureteronephrosis likely due to mucosal edema. The patient is n.p.o. for cysto replacement of right ureteral stent. Continue broad-spectrum antibiotics. will reassess the patient in this afternoon after stent. If clinically stable, pain improved, will consider discharge with broad-spectrum antibiotic therapy with close followup to review final sensitivity. patient agrees. Job ID: [id number] MTDD
[2018-08-29] MEDS ORDERED: Fentanyl 100 MCG/2 ML VIAL ONE (08:38)
[2018-08-29] MEDS ORDERED: Scopolamine 1.5 mg/72 hour Patch ONE (09:01)
[2018-08-29] MEDS ORDERED: Iothalamate Meglumine 60% 50 ML VIAL FS ONE (09:22)
[2018-08-29] MEDS ORDERED: cefOXitin 2 GM VIAL ONE (09:27)
[2018-08-29] MEDS ORDERED: Ampicillin 2 GM in Sodium Chloride 0.9% 100 ML IVPB SCH (10:00)
[2018-08-29] MEDS ORDERED: HYDROmorphone 2 MG/ML VIAL SLOW IVP PRN (10:03)
[2018-08-29] MEDS ORDERED: Meperidine HCl/PF 25 MG/ML VIAL SLOW IVP PRN (10:03)
[2018-08-29] MEDS ORDERED: Promethazine HCl 25 MG/ML VIAL IM PRN (10:03)
[2018-08-29] MEDS ORDERED: Ondansetron HCl/PF 4 MG/2 ML Vial IVP PRN (10:03)
[2018-08-29] MEDS ORDERED: Promethazine HCl 25 MG/ML VIAL SLOW IVP PRN (10:03)
--- NOTE | 2018-08-29 10:33 | RAD ---
RETROGRADE PYELOGRAM: Date: 08/29/18 HISTORY: Stent placement. FINDINGS: Single film is presented for interpretation, which shows a right ureteral stent in good position. IMPRESSION: Good position of right ureteral stent. POS: [facility]
[2018-08-29] MEDS ORDERED: AMOXicillin 250 MG CAP PO SCH (10:45)
[2018-08-29] MEDS: Calcium Carbonate 500 MG TAB PO SCH (12:27)
[2018-08-29] MEDS: Floranex Packet PO SCH (12:27)
[2018-08-29] MEDS: Famotidine/PF 20 mg/2ml Vial SLOW IVP SCH (12:28)
[2018-08-29] MEDS: Docusate 100 MG CAP PO SCH ×2 (12:28→21:10)
[2018-08-29] MEDS: Tamsulosin HCl 0.4 MG CAP PO SCH (12:28)
--- NOTE | 2018-08-29 15:56 | OP ---
DATE OF PROCEDURE: 08/28/2018 PREOPERATIVE DIAGNOSES: 1. A 77-year-old female with history of recurrent kidney stones, history of right ureteral calculi, 7 mm, status post ureteroscopy, laser lithotripsy, stent placement, dilation of intramural ureter. 2. Status post stent pull with right hydroureteronephrosis. POSTOPERATIVE DIAGNOSES: 1. A 77-year-old female with history of recurrent kidney stones, history of right ureteral calculi, 7 mm, status post ureteroscopy, laser lithotripsy, stent placement, dilation of intramural ureter. 2. Status post stent pull with right hydroureteronephrosis. PROCEDURES PERFORMED: Cystoscopy, limited right retrograde pyelogram, 6 x 24 double-J ureteral stent exchange, rigid ureteroscopy, biopsy of right intramural ureteral mucosal flap obstructing. ANESTHESIA: LMA. COMPLICATIONS: None apparent. DISPOSITION: To recovery room in stable condition. INTRAOPERATIVE FINDINGS: 1. Bladder demonstrates right periureteral bullous edema consistent with recent indwelling ureteral stents. Retrograde limited pyelogram demonstrated questionable filling defect. 2. Right ureteroscopy of the intramural ureter demonstrates mucosal flap/ inflammation resulting in obstruction. INDICATIONS FOR PROCEDURE AND HISTORY: Ms. Cristobal is a 77-year-old female with history of recurrent kidney stones. She presented with intractable pain due to right proximal ureteral stone, underwent stent placement. Her preop urine culture was negative. She underwent staged ureteroscopy laser lithotripsy. The stone was pushed up into the renal collecting system and laser lithotripsied uneventfully. She did require intramural dilatation of the ureter, despite having an indwelling ureteral stent for 1 week as it did not passively dilate. Previous Balloon Dilation was uneventful. She underwent ureteral stent removal in my office yesterday, however, presented with intractable right flank pain. CT demonstrates no evidence of ureteral calculi, however, right hydroureteronephrosis to the level of the UVJ. As I suspect mucosal edema, and due to her persistent discomfort, she presents for stent placement. Risks and complications and indications of the procedure were reviewed with her in detail including, but not limited to, bleeding, pain, infection, injury to adjacent organs, urosepsis, stricture formation, ureteral and bladder injury was reviewed. She desired to proceed. She was previously on ciprofloxacin periprocedural, With preop urine culture negative. DESCRIPTION OF PROCEDURE: After an informed consent was signed, the patient was taken to the operating room,, placed in a dorsal lithotomy position with the genital area prepped and draped in the usual surgical sterile fashion. A 21-Swedish cystoscope was utilized for cystoscopy. Upon entering the bladder, there was no stone debris. There was periureteral edema of the right ureteral orifice consistent with indwelling ureteral stent previously. The UO was identified. An open- ended catheter was passed into the right ureteral orifice. We did a gentle retrograde pyelogram, which demonstrated a questionable filling defect in the intramural ureter. We passed a 0.35 Sensor wire into the right upper pole without significant problems. As I was concerned about questionable filling defect, distal ureteroscopy was performed.. I was able to pass the scope without significant issues. At the level of the intramural ureter, there was inflammatory mucosal flap obstructing the intramural component. Using a Piranha biopsy, we were able to retrieve the obstructing ureteral mucosal flap. This was sent for pathology. The scope was advanced just proximal to the intramural ureter with normal ureteral mucosa not of concern. No evidence of ureteral perforation was appreciated. A 6 x 24 double-J ureteral stent was then subsequently passed and the wire removed. She tolerated the procedure well. I will observe the patient this afternoon. Pending clinical status, we will consider discharge versus observation. Given the presenting obstructing ureteral mucosal flap, will leave an indwelling ureteral stent for minimum 2 weeks. Job ID: [id number] [facility]
[2018-08-29] MEDS: Famotidine 20 MG TAB PO SCH (21:10)
[2018-08-30] MEDS: cefOXitin 1.5 GM in Sodium Chloride 0.9% 100 ML IVPB SCH ×2 (04:57→11:50)
[2018-08-30] MEDS: Sodium Chloride 0.9% 1,000 ML IV SCH (08:33)
[2018-08-30] MEDS: Famotidine 20 MG TAB PO SCH (08:34)
[2018-08-30] MEDS: Calcium Carbonate 500 MG TAB PO SCH (08:34)
[2018-08-30] MEDS: Docusate 100 MG CAP PO SCH (08:34)
[2018-08-30] MEDS: Tamsulosin HCl 0.4 MG CAP PO SCH (08:34)
[2018-08-30] MEDS: Floranex Packet PO SCH (08:37)
[2018-08-30 12:02] VITALS: BP 122/74; TEMP 97
--- NOTE | 2018-08-30 20:42 | DIS ---
DATE OF ADMISSION: 08/28/2018 DATE OF DISCHARGE: 08/30/2018 REASON FOR ADMISSION: Right flank pain. HISTORY OF PRESENT ILLNESS: Please see details of history on the admission history and physical by Dr. Jeanne Padron. In short, this patient underwent ureteroscopy, laser lithotripsy for right ureteral stone on 08/20/2018. She had a stent removal on 08/28/2018, where then developed severe right-sided flank pain. CT scan demonstrated right ureteral obstruction without residual stones. HOSPITAL COURSE: The patient was admitted on 08/28/2018, and taken back to the operating room where she underwent ureteroscopy. She was noted to have a mucosal flap and was managed with indwelling ureteral stent and removal of the flap endoscopically. A urine culture was obtained and demonstrated E coli. E coli sensitive to Bactrim. She has been afebrile during her hospital stay. IN-HOUSE COMPLICATIONS: None. DISPOSITION ON DISCHARGE: Good. DISCHARGE MEDICATIONS: Bactrim DS one p.o. b.i.d. FOLLOWUP: The patient to arrange followup with Dr. Padron. Job ID: [id number]
== END 2018-08-30 14:09 | disposition home or self-care (01) | DRG 661 ==
LOC: SURG A 17:45
PROVIDERS: ADMIT Urology; ATTEND Urology
PROC: 0T768DZ Dilation of Right Ureter with Intraluminal Device, Via Natural or Artificial Opening Endoscopic (ICD-10-PCS; principal; 2018-08-29)
PROC: 0TB68ZX Excision of Right Ureter, Via Natural or Artificial Opening Endoscopic, Diagnostic (ICD-10-PCS; 2018-08-29)
PROC: BT1D1ZZ Fluoroscopy of Right Kidney, Ureter and Bladder using Low Osmolar Contrast (ICD-10-PCS; 2018-08-29)
PROC: 0TP98DZ Removal of Intraluminal Device from Ureter, Via Natural or Artificial Opening Endoscopic (ICD-10-PCS; 2018-08-29)
DX: N13.2 Hydronephrosis with renal and ureteral calculous obstruction (principal); I25.10 Atherosclerotic heart disease of native coronary artery without angina pectoris; E11.9 Type 2 diabetes mellitus without complications; E78.5 Hyperlipidemia, unspecified; G43.909 Migraine, unspecified, not intractable, without status migrainosus; M19.91 Primary osteoarthritis, unspecified site; M41.9 Scoliosis, unspecified; Z90.710 Acquired absence of both cervix and uterus; Z86.73 Personal history of transient ischemic attack (TIA), and cerebral infarction without residual deficits; Z79.899 Other long term (current) drug therapy
CPT/HCPCS: 36415; 74176; 74420; 80048; 81001; 85025; 85027; 87077; 87086; 87186; 88304; C1758; C1769; J0290; J0694; J2270; J2405; J3010; J3490; Q9961; S0028

== ENCOUNTER 2018-09-29 12:03 | Outpatient (CLI) | payer MEDICARE, OTHER ==
[2018-09-29 13:34] LABS: ALT (SGPT) 17 U/L (8-55); AST (SGOT) 20 U/L (5-34); Alkaline Phosphatase 81 U/L (40-150); Anion Gap 14 mmol/L (10-20); BUN (Urea Nitrogen) 15 mg/dL (9.8-20.1); Bilirubin, Direct 0.2 mg/dL (0.1-0.3); Bilirubin, Total 0.6 mg/dL (0.2-1.2); Calc. Creatinine Clearance 0 mL/min (70-130); Calcium 9.1 mg/dL (7.8-10.44); Carbon Dioxide 22 mmol/L (23-31); Chloride 107 mmol/L (98-107); Estimated GFR-MDRD 70; Globulin 2.9 g/dL (2.4-3.5); Glucose 97 mg/dL (83-110); Potassium 4.3 mmol/L (3.5-5.1); Protein, Total 6.9 g/dL (6.0-8.3); Sodium 139 mmol/L (136-145)
[2018-09-29 13:48] LABS: #Eosinphils 0.2 thou/uL (0.0-0.7); #Lymphocytes 1.9 thou/uL (1.20-3.40); #Monocytes 0.8 thou/uL (0.11-0.59); #Neutrophils 2.6 thou/uL (1.40-6.50); %Basophils 0.8 % (0.0-1.0); %Eosinophils 3.7 % (0.0-10.0); %Monocytes 13.7 % (0.0-10.0); %Neutrophils 46.8 % (42.0-75.0); Hemoglobin 10.3 g/dL (12.0-16.0); MDiff Complete? YES; Macrocytosis SLIGHT = 6-15 cells (100X) (0-5/hpf); Mean Corpuscular HGB CONC 33.7 g/dL (32.0-36.0); Mean Corpuscular Hemoglobin 35.8 pg (27.0-31.0); Mean Platelet Volume 7.6 fL (7.4-10.4); Platelet Count 225 thou/uL (130-400); Platelet Morphology Comment Appears Adequate; RBC Distribution Width 13.7 % (11.5-14.5); Red Blood Cell (RBC) Count 2.87 mill/uL (4.20-5.40); White Blood Cell (WBC) Count 5.5 thou/uL (4.8-10.8)
--- NOTE | 2018-09-29 15:17 | EKG ---
Test Reason : Blood Pressure : / mmHG Vent. Rate : 063 BPM Atrial Rate : 063 BPM P-R Int : 206 ms QRS Dur : 078 ms QT Int : 430 ms P-R-T Axes : 070 020 052 degrees QTc Int : 440 ms Normal sinus rhythm Cannot rule out Anterior infarct (cited on or before 01-FEB-2017) Abnormal ECG Confirmed by KELLIE VILLALOBOS ([id number]) on 09/29/2018 3:16:50 PM Referred By: PRERNA Confirmed By:KELLIE VILLALOBOS
== END 2018-09-29 12:04 | disposition home or self-care (01) ==
LOC: LABBT 12:03
PROVIDERS: ATTEND Surgery
DX: Z01.818 Encounter for other preprocedural examination (principal); K80.20 Calculus of gallbladder without cholecystitis without obstruction
CPT/HCPCS: 80053; 80076; 85025; 93005; 93010

== ENCOUNTER 2018-10-01 05:46 | Day surgery (SDC) | payer MEDICARE, OTHER ==
[2018-09-29 12:18] VITALS: BMI 28.3
[2018-10-01] MEDS ORDERED: Fentanyl 100 MCG/2 ML VIAL ONE ×3 (06:32→09:34)
[2018-10-01] MEDS ORDERED: Lidocaine 2% Jelly 5 ML TUBE ONE (06:32)
[2018-10-01] MEDS ORDERED: Bupivacaine/Epinephrine 0.25% 30 ML VIAL ONE (06:33)
[2018-10-01] MEDS ORDERED: Sodium Chloride 0.9% 100 ML ONE (06:38)
[2018-10-01] MEDS ORDERED: cefOXitin 2 GM VIAL ONE (06:38)
[2018-10-01] MEDS ORDERED: Scopolamine 1.5 mg/72 hour Patch ONE (07:26)
--- NOTE | 2018-10-01 08:26 | HP ---
CHIEF COMPLAINT: Right upper quadrant abdominal pain. HISTORY: A 78-year-old female, who has been having episodic severe right upper quadrant pain. CT showed a ureteral obstruction. Stent was placed to relieve the pain. It also showed a 2.5 cm mass versus stone in the gallbladder. She is here for laparoscopic cholecystectomy. PAST MEDICAL HISTORY: Hypertension, scoliosis, mitral valve prolapse, chest pain, diverticulosis, hyperlipidemia, migraine headaches, and kidney stones. PAST SURGICAL HISTORY: Hysterectomy for endometriosis, colonoscopy, neck surgery, cervical disk replacement, knee cartilage repairs, and ureteral stent. MEDICATIONS: 1. Simvastatin. 2. Enalapril. 3. Metoprolol. 4. Sumatriptan. 5. Zofran. 6. Detrol. 7. [place]. ALLERGIES: SHE HAS NO KNOWN DRUG ALLERGIES. FAMILY HISTORY: Brother has diabetes. Father has colon cancer. Mother had a CVA. SOCIAL HISTORY: She is . No tobacco. No alcohol. PHYSICAL EXAMINATION: VITAL SIGNS: Height 63, weight 163, and body mass index 28.8. GENERAL: Well-developed, well-nourished female, in no apparent distress. HEENT: Unremarkable. LUNGS: Clear. HEART: Regular rate and rhythm. ABDOMEN: Soft, nontender. Good bowel sounds. No hernias or masses. EXTREMITIES: Good pulses. No pedal edema. ASSESSMENT: Symptomatic cholelithiasis. PLAN: Laparoscopic cholecystectomy. CONSENT: I have discussed planned procedure as well as risk of bleeding, infection, injury to bowel, bile duct, and need to open, she understands and gives informed consent. Job ID: [id number]
[2018-10-01] MEDS ORDERED: Ondansetron PF 4 MG/2 ML Vial ONE ×2 (08:56→16:36)
[2018-10-01] MEDS ORDERED: Promethazine HCl 25 MG/ML VIAL ONE (09:47)
[2018-10-01] MEDS ORDERED: HYDROcodone/Acetaminophen 5/325 mg Tablet ONE (10:16)
--- NOTE | 2018-10-01 11:57 | OP ---
DATE OF PROCEDURE: 10/01/2018 PREOPERATIVE DIAGNOSIS: Symptomatic cholelithiasis. PROCEDURE PERFORMED: Laparoscopic cholecystectomy. INDICATIONS: A 78-year-old female, who has been having episodic right upper quadrant pain, radiating to back, associated with nausea. Ultrasound showed cholelithiasis. FINDINGS: Large stones and small cystic duct. DESCRIPTION OF PROCEDURE: After informed consent was obtained, the patient was taken to the operating room, given general endotracheal anesthesia, placed in the supine position. Abdomen was prepped and draped in usual fashion. Local anesthesia infiltrated subcutaneously and deep and a 12 mm incision was performed in subumbilical area. A blunt 12 mm trocar inserted. Pneumoperitoneum was created to a pressure of 15 mmHg. A 0-degree laparoscope was inserted under direct vision. Three 5 mm ports were placed subcostally. The gallbladder was grasped and advanced superiorly. Peritoneum lysed distally to dissect out the cystic duct and artery in critical view. The duct and artery triply ligated with hemoclips and divided. The gallbladder removed from its fossa utilizing electrocautery, removed from the abdomen through the umbilical port. Hemostasis assured. Some Catina powder had to be used as well. The fascia closed with 0 Vicryl suture and the GraNee needle. Skin closed with interrupted 4-0 Rapide. Dermabond applied. The patient tolerated the procedure well, transferred to Recovery in good condition. Sponge and needle count verified correct x2. Job ID: [id number]
[2018-10-01] MEDS ORDERED: Glycopyrrolate 0.2 MG/ML 5 ML SYRINGE ONE (16:36)
[2018-10-01] MEDS ORDERED: Dexamethasone 20 MG/5 ML VIAL ONE (16:36)
[2018-10-01] MEDS ORDERED: ePHEDrine 50 MG/ML VIAL ONE (16:36)
[2018-10-01] MEDS ORDERED: Lidocaine 1% PF 5 ML VIAL ONE (16:36)
[2018-10-01] MEDS ORDERED: Rocuronium Bromide 10 MG/ML (10ML VIAL) ONE (16:36)
[2018-10-01] MEDS ORDERED: Metoprolol Tartrate 5 MG/5 ML VIAL ONE (16:36)
[2018-10-01] MEDS ORDERED: Labetalol HCl 100 MG/20 ML VIAL ONE (16:36)
[2018-10-01] MEDS ORDERED: PROPOFOL 200 MG/20 ML VIAL ONE (16:36)
== END 2018-10-01 10:57 | disposition home or self-care (01) ==
LOC: SDC 05:46
PROVIDERS: ATTEND Surgery
PROC: 0FT44ZZ Resection of Gallbladder, Percutaneous Endoscopic Approach (ICD-10-PCS; principal; 2018-10-01)
DX: K80.10 Calculus of gallbladder with chronic cholecystitis without obstruction (principal); I10 Essential (primary) hypertension; E78.5 Hyperlipidemia, unspecified; G43.909 Migraine, unspecified, not intractable, without status migrainosus; I34.1 Nonrheumatic mitral (valve) prolapse; M41.9 Scoliosis, unspecified; Z79.899 Other long term (current) drug therapy; Z98.890 Other specified postprocedural states
CPT/HCPCS: 88304; J0131; J0694; J1100; J2001; J2405; J2550; J2704; J3010; J3490

== ENCOUNTER 2018-11-12 07:26 | Outpatient (CLI) | payer MEDICARE, OTHER ==
--- NOTE | 2018-11-12 08:06 | ULT ---
Gallbladder ultrasound: Multiple grayscale images of right upper quadrant obtained according to protocol. INDICATION: Pain FINDINGS: Liver: Normal Gallbladder: Absent Gallbladder wall: Normal. Armando's Sign: Negative Common bile duct is dilated, likely due to reservoir effect from prior cholecystectomy Ascites: None IMPRESSION: Surgical absence of gallbladder. No acute process evident.
== END 2018-11-12 07:27 | disposition home or self-care (01) ==
LOC: ULT 07:26
PROVIDERS: ATTEND Surgery
DX: R10.11 Right upper quadrant pain (principal); Z90.49 Acquired absence of other specified parts of digestive tract
CPT/HCPCS: 76705

== ENCOUNTER 2018-11-13 12:57 | Outpatient (CLI) | payer MEDICARE, OTHER ==
--- NOTE | 2018-11-13 17:54 | RAD ---
KUB: DATE: 11/13/18 INDICATION: Renal calculus. COMPARISON: 08/20/18. FINDINGS: Marked dextroscoliosis and degenerative change of the imaged lower thoracic/lumbar spine. Prior right ureteral stent has been removed. Punctate calcific density overlying the medial margin of the right renal shadow is noted. There are also small, punctate calcifications of the right hemipelvis. Larger calcific density of the right abdomen on prior exam may be superimposed upon a portion of the scoliot ic spine and this is difficult to further discern in the limitations of this exam. IMPRESSION: 1. Probable superimposition of the prior calculus of the right kidney on the scoliotic lumbar spine. Additional calcifications are seen overlying the right abdomen and pelvis as above. As necessary, follow-up with CT may be performed if indicated. 2. Interval removal prior right ureteral stent. POS: [facility]
--- NOTE | 2018-11-13 17:55 | ULT ---
RENAL SONOGRAM: HISTORY: Ureteral obstruction. Kidney stone. FINDINGS: The right kidney is 11.2 cm. No hydronephrosis. A 2.2 cm cyst is present at the inferior pole. The left kidney is 11.1 cm. Along the medial cortex, a small echogenicity likely correlates with the nonobstructing stones on prior CT. Urinary bladder is unremarkable. IMPRESSION: 1. No evidence of urinary tract obstruction. 2. Nonobstructing left renal calculus/calculi. 3. Small right renal cyst. POS: [facility]
== END 2018-11-13 12:58 | disposition home or self-care (01) ==
LOC: SCSULT 12:57
PROVIDERS: ATTEND Urology
DX: N20.0 Calculus of kidney (principal); N28.1 Cyst of kidney, acquired
CPT/HCPCS: 74018; 76770

== ENCOUNTER 2018-12-30 07:43 | Outpatient (CLI) | payer MEDICARE, OTHER ==
[2018-12-30 08:42] LABS: Estimated GFR-MDRD - POC Greater than 90
[2018-12-30] MEDS ORDERED: Iopamidol 370 76% 100 ML VIAL ONE (10:00)
--- NOTE | 2018-12-30 11:14 | CT ---
CT CHEST WITH IV CONTRAST CT ABDOMEN WITH IV CONTRAST: Date: 12/30/18 HISTORY: Right upper quadrant pain. COMPARISON: CT chest, abdomen, and pelvis of 01/21/13, and CT abdomen and pelvis with IV contrast of 08/11/18. FINDINGS: No mediastinal, hilar, or axillary mass or lymphadenopathy seen. There are vascular calcifications wi thout evidence of aneurysmal dilatation of the thoracoabdominal aorta. No pleural or pericardial effu sions are seen. Chronic changes in the lungs are again noted. No new lung nodules are identified. The patient is post cholecystectomy. There are nonobstructing tiny calculi in the left kidney. Cysts in the left kidney again seen. Right kidney unremarkable. Liver, spleen, pancreas, and adrenal glands are normal. No free air, free fluid, or lymphadenopathy seen in the abdomen or pelvis. There is colonic diverticu losis without evidence of diverticulitis. There are degenerative changes in the spine. There is dextr oscoliosis of the lumbar spine. IMPRESSION: 1. Stable chronic changes in the lungs. 2. Nonobstructing tiny left renal calculi. 3. Left renal cysts. 4. Colonic diverticulosis. POS: [facility]
== END 2018-12-30 07:44 | disposition home or self-care (01) ==
LOC: CT 07:43
PROVIDERS: ATTEND Family Medicine
DX: R10.11 Right upper quadrant pain (principal); N20.0 Calculus of kidney; K57.30 Diverticulosis of large intestine without perforation or abscess without bleeding; N28.1 Cyst of kidney, acquired
CPT/HCPCS: 71260; 74160; 82565; Q9967

== ENCOUNTER 2019-03-12 08:13 | Outpatient (CLI) | payer MEDICARE, OTHER ==
--- NOTE | 2019-03-12 09:41 | RAD ---
Radiograph abdomen one view: DATE: 03/12/2019 Time: 8:52 AM HISTORY: 78-year-old female with renal calculi, post procedure. COMPARISON: 11/13/2018 FINDINGS: Tiny calcification just to the right of the lower lumbar spine and projecting slightly superior to th e right iliac crest was present on the previous KUB. On the CT of 12/30/2018, it is shown to be external to the ureter. No definite renal calculus is identified on this KUB. It is possible that the somewhat severe dextroscoliosis of the lumbar spine and associated hypertrophic degenerative changes, could overlap and obscure a tiny calculus. Bowel gas pattern is normal. No interval change i dentified. Tiny calcifications in the right hemipelvis may represent phleboliths. IMPRESSION: 1. Somewhat severe dextroscoliosis of lumbar spine with high-grade lumbar spondylosis. 2. No definite urolithiasis identified.
--- NOTE | 2019-03-12 09:48 | ULT ---
BILATERAL RENAL ULTRASOUND: Date: 03/12/19 HISTORY: Renal calculi. FINDINGS: The right kidney measures 11.5 cm in length and the left kidney measures 11.5 cm in length. There is a 1.7 cm cyst in the right kidney. Echogenic foci in the left kidney are consistent with calculi. No hydronephrosis noted on either side. Bilateral ureteral jets are present. The pre-void bladder volume measures 138 mL with a residual of 49 mL. IMPRESSION: 1. Right renal cyst. 2. Nonobstructing left renal calculi. 3. Significant post-void residual in the urinary bladder. POS: [facility]
== END 2019-03-12 08:14 | disposition home or self-care (01) ==
LOC: BICULT 08:13
PROVIDERS: ATTEND Urology
DX: N20.0 Calculus of kidney (principal); M47.816 Spondylosis without myelopathy or radiculopathy, lumbar region; M41.9 Scoliosis, unspecified
CPT/HCPCS: 74018; 76770

== ENCOUNTER 2019-05-21 01:17 | Outpatient (CLI) | payer MEDICARE, OTHER ==
--- NOTE | 2019-05-21 13:39 | RAD ---
EXAM: XR Abdomen 1 View/KUB PROVIDED CLINICAL HISTORY: Renal calculi COMPARISON: 03/12/2019 FINDINGS: No radiographically apparent urinary tract calculi. Nonspecific bowel gas pattern. Stable vascular ca lcifications and scoliosis of the lumbar spine with associated degenerative change. Visualized lung bases appear clear. IMPRESSION: No radiographically apparent urinary tract calculi.
== END 2019-05-21 01:18 | disposition home or self-care (01) ==
LOC: RAD 01:17
PROVIDERS: ATTEND Urology
DX: N20.0 Calculus of kidney (principal)
CPT/HCPCS: 36415; 74018; 80048; 81001; 83970; 84550; 87086

== ENCOUNTER 2019-12-14 13:06 | Outpatient (CLI) | payer MEDICARE, OTHER ==
--- NOTE | 2019-12-14 14:14 | MMO ---
Bilateral MAMMO Bilat Screen [facility]. CLINICAL HISTORY: Patient is 79 years old and is seen for screening. The patient has no family history of breast cancer. The patient has no personal history of cancer. The patient has a history of right needle biopsy at age 62 - benign. VIEWS: The views performed were: bilateral craniocaudal with tomosynthesis and bilateral mediolateral oblique with tomosynthesis. FILMS COMPARED: The present examination has been compared to prior imaging studies performed at [facility] on 07/08/2017 and 07/09/2018, and at [facility] on 02/08/2014 and 05/24/2015. This study has been interpreted with the assistance of computer-aided detection. MAMMOGRAM FINDINGS: There are scattered fibroglandular densities. There are no suspicious masses, suspicious calcifications, or new areas of architectural distortion. IMPRESSION: THERE IS NO MAMMOGRAPHIC EVIDENCE OF MALIGNANCY. A ROUTINE FOLLOW-UP MAMMOGRAM IN 1 YEAR IS RECOMMENDED. THE RESULTS OF THIS EXAM WERE SENT TO THE PATIENT. ACR BI-RADS Category 1 - Negative MAMMOGRAPHY NOTE: 1. A negative mammogram report should not delay a biopsy if a dominant of clinically suspicious mass is present. 2. Approximately 10% to 15% of breast cancers are not detected by mammography. 3. Adenosis and dense breasts may obscure an underlying neoplasm. Reported by: SANDRA CABRERA MD Electonically Signed: [id number]
== END 2019-12-14 13:07 | disposition home or self-care (01) ==
LOC: BICMAMMO 13:06
PROVIDERS: ATTEND Family Medicine
DX: Z12.31 Encounter for screening mammogram for malignant neoplasm of breast (principal); Z91.89 Other specified personal risk factors, not elsewhere classified
CPT/HCPCS: 77063; 77067

== ENCOUNTER 2020-01-15 10:10 | Outpatient (CLI) | payer MEDICARE, OTHER ==
--- NOTE | 2020-01-15 11:53 | MRI ---
MRI LUMBAR SPINE NONCONTRAST: HISTORY: Lumbar radicular pain. Symptoms radiate down the right leg for many years. Scoliosis. COMPARISON: None. FINDINGS: Coronal T2-weighted images demonstrate market dextroscoliosis of the lumbar spine, apex at the L3 lev el. There is appropriate signal intensity of the visualized paraspinal muscles and solid organs. Conus medullaris terminates at the upper aspect of L1. 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 Overall there is appropriate T1 marrow signal intensity of the lumbar vertebra. No fracture. No signi ficant STIR hyperintensity to suggest vertebral body edema or ligamentous injury. T12-L1:Disc desiccation with severe loss of disc space height. No significant central canal stenosis. Right neural foramen is patent. Moderate left neural foraminal narrowing. L1-L2:Disc desiccation with moderate loss of disc space height. Broad-based disc bulge abuts the thec al sac. No significant central canal stenosis. Patent bilateral neural foramina. L2-L3:Moderate loss of disc space height. Broad-based disc bulge abuts the thecal sac. Mild central c anal stenosis. Patent right and moderate left neural foraminal narrowing. L3-L4:Disc desiccation with moderate to severe loss of disc space height. Broad-based disc bulge abut s the thecal sac. There is ligamentum flavum thickening and facet hypertrophy. Mild to moderate central canal stenosis. Moderate bilateral neural foraminal narrowing. L4-L5:Disc desiccation with mild loss of disc space height. Broad-based disc bulge, ligament flavum t hickening and facet hypertrophy result in mild to moderate central canal stenosis. Narrowing of the right subarticular zone with partial obscuration of the traversing right L5 nerve root. Moderate to s evere right and moderate left neural foraminal narrowing. L5-S1:Adequate disc hydration. No significant posterior disc abnormality. No significant central angelique l stenosis. There is mild ligament flavum thickening and moderate to severe facet hypertrophy. Mild bilateral neural foraminal narrowing. IMPRESSION: 1. Rightward scoliosis of the lumbar spine. 2. Multilevel degenerative changes of the lumbar spine as detailed above. Transcribed Date/Time: 01/15/2020 11:59 AM
== END 2020-01-15 10:11 | disposition home or self-care (01) ==
LOC: BICMRI 10:10
PROVIDERS: ATTEND Specialist
DX: M47.26 Other spondylosis with radiculopathy, lumbar region (principal); M41.9 Scoliosis, unspecified
CPT/HCPCS: 72148

== ENCOUNTER 2020-07-14 08:09 | Outpatient (CLI) | payer MEDICARE, OTHER | END 2020-07-14 08:10 | disposition home or self-care (01) | LOC: BICMAMMO 08:09 | PROVIDERS: ATTEND Physician Assistant Medical | DX: Z13.820 Encounter for screening for osteoporosis (principal); R10.32 Left lower quadrant pain; K57.90 Diverticulosis of intestine, part unspecified, without perforation or abscess without bleeding; R13.10 Dysphagia, unspecified; M85.851 Other specified disorders of bone density and structure, right thigh; M85.852 Other specified disorders of bone density and structure, left thigh; Z92.241 Personal history of systemic steroid therapy; Z87.442 Personal history of urinary calculi | CPT/HCPCS: 77080 ==

== ENCOUNTER 2020-07-20 09:15 | Outpatient (CLI) | payer MEDICARE, OTHER ==
[2020-07-20] MEDS ORDERED: Iopamidol 370 76% 100 ML VIAL ONE (11:37)
== END 2020-07-20 09:16 | disposition home or self-care (01) ==
LOC: CT 09:15
PROVIDERS: ATTEND Physician Assistant Medical
DX: K57.30 Diverticulosis of large intestine without perforation or abscess without bleeding (principal); R10.32 Left lower quadrant pain; R13.10 Dysphagia, unspecified; Z92.241 Personal history of systemic steroid therapy; Z87.442 Personal history of urinary calculi
CPT/HCPCS: 74177; 82565; Q9967

== ENCOUNTER 2021-02-28 08:58 | Outpatient (CLI) | payer MEDICARE, OTHER | END 2021-02-28 08:59 | disposition home or self-care (01) | LOC: BICMAMMO 08:58 | PROVIDERS: ATTEND Family Medicine | DX: Z12.31 Encounter for screening mammogram for malignant neoplasm of breast (principal) | CPT/HCPCS: 77063; 77067 ==

== ENCOUNTER 2021-05-21 10:45 | Inpatient (IN) | payer MEDICARE, OTHER ==
[~2021-05-21 10:45] MED LIST changes: -Ampicillin 2 GM VIAL ONE; -Dexamethasone 20 MG/5 ML VIAL ONE; -Fentanyl 100 MCG/2 ML VIAL ONE; -Glycopyrrolate 0.2 MG/ML 5 ML SYRINGE ONE; +Iopamidol-370 76% 500 ML 1 ML ONE; -Iothalamate Meglumine 60% 50 ML VIAL FS ONE; -Levofloxacin 500 mg/D5W 100 ml Premix Bag ONE; -Lidocaine 1% PF 5 ML VIAL ONE; -Ondansetron PF 4 MG/2 ML Vial ONE; -Oxybutynin 5 MG TAB ONE; -PROPOFOL 200 MG/20 ML VIAL ONE; -Phenazopyridine HCl 97.5 MG TABLET ONE; -Promethazine HCl 25 MG/ML VIAL ONE; -Rocuronium Bromide 10 MG/ML (10ML VIAL) ONE; -Sodium Chloride 0.9% 100 ML ONE; -ePHEDrine 50 MG/ML VIAL ONE
[2021-05-21] MEDS ORDERED: Morphine 4 MG/ML VIAL ONE ×2 (11:18→13:10)
[2021-05-21] MEDS ORDERED: Ondansetron PF 4 MG/2 ML Vial ONE (11:18)
[2021-05-21 11:51] LABS: #Eosinphils 0.1 thou/uL (0.0-0.7); #Monocytes 0.3 thou/uL (0.11-0.59); #Neutrophils 9.1 thou/uL (1.40-6.50); %Basophils 0.4 % (0.0-1.0); %Eosinophils 0.4 % (0.0-10.0); %Lymphocytes 17.5 % (21.0-51.0); %Monocytes 2.5 % (0.0-10.0); %Neutrophils 79.2 % (42.0-75.0); Hemoglobin 15.3 g/dL (12.0-16.0); MDiff Complete? YES; Macrocytosis SLIGHT = 6-15 cells (100X) (0-5/hpf); Mean Corpuscular HGB CONC 32.7 g/dL (32.0-36.0); Mean Corpuscular Hemoglobin 34.4 pg (27.0-31.0); Mean Platelet Volume 7.9 fL (7.4-10.4); Platelet Count 284 thou/uL (130-400); RBC Distribution Width 11.5 % (11.5-14.5); Red Blood Cell (RBC) Count 4.46 mill/uL (4.20-5.40); White Blood Cell (WBC) Count 11.5 thou/uL (4.8-10.8)
[2021-05-21 12:00] LABS: ALT (SGPT) 24 U/L (8-55); AST (SGOT) 39 U/L (5-34); Albumin 4.5 g/dL (3.4-4.8); Alkaline Phosphatase 69 U/L (40-110); Anion Gap 20 mmol/L (10-20); BUN (Urea Nitrogen) 20 mg/dL (9.8-20.1); Bilirubin, Total 1.4 mg/dL (0.2-1.2); Calc. Creatinine Clearance 0 mL/min (70-130); Calcium 9.9 mg/dL (7.8-10.44); Carbon Dioxide 18 mmol/L (23-31); Chloride 107 mmol/L (98-107); Globulin 3.6 g/dL (2.4-3.5); Glucose 190 mg/dL (83-110); Lipase 48 U/L (8-78); Potassium 4.5 mmol/L (3.5-5.1); Protein, Total 8.1 g/dL (5.8-8.1); Sodium 140 mmol/L (136-145)
[2021-05-21] MEDS ORDERED: Dicyclomine 20 MG TAB ONE (12:15)
[2021-05-21] MEDS ORDERED: Piperacillin/Tazobactam 4.5 GM in Sodium Chloride 0.9% 100 ML IVPB SCH (14:00)
[2021-05-21] MEDS ORDERED: hydrALAZINE 20 MG/ML VIAL SLOW IVP PRN (15:28)
[2021-05-21] MEDS ORDERED: Loperamide HCl 2 MG CAP PO PRN (15:28)
[2021-05-21] MEDS ORDERED: Acetaminophen 325 MG TAB PO PRN (15:28)
[2021-05-21 15:34] LABS: Lactic Acid 3.9 mmol/L (0.5-2.2)
[2021-05-21 16:01] VITALS: BMI 30.2
[2021-05-21] MEDS: Ondansetron PF 4 MG/2 ML Vial IVP PRN (17:09)
[2021-05-21] MEDS: Lactated Ringer's 1,000 ML IV SCH (17:09)
[2021-05-21] MEDS ORDERED: Morphine 4 MG/ML VIAL SLOW IVP PRN (17:18)
[2021-05-21 19:39] LABS: SARS-CoV-2 PCR by NAA Not Detected (NotDetected)
[2021-05-21] MEDS: Atorvastatin Calcium 20 MG TAB PO SCH (21:48)
[2021-05-21] MEDS: Apixaban 2.5 MG TAB PO SCH (21:48)
[2021-05-21] MEDS: Lisinopril 20 MG TAB PO SCH (21:48)
[2021-05-21] MEDS: Piperacillin/Tazobactam 3.375 GM in Sodium Chloride 0.9% 100 ML IVPB SCH (23:14)
[2021-05-21] MEDS: Ondansetron ODT 4 MG TAB PO PRN (23:34)
[2021-05-22] MEDS: Lactated Ringer's 1,000 ML IV SCH ×3 (03:14→20:42)
[2021-05-22 05:52] LABS: #Lymphocytes 1.6 thou/uL (1.20-3.40); #Monocytes 1.5 thou/uL (0.11-0.59); #Neutrophils 14.9 thou/uL (1.40-6.50); %Basophils 0.1 % (0.0-1.0); %Eosinophils 0.1 % (0.0-10.0); %Lymphocytes 8.6 % (21.0-51.0); %Monocytes 8.2 % (0.0-10.0); Mean Corpuscular HGB CONC 33.2 g/dL (32.0-36.0); Mean Corpuscular Hemoglobin 34.6 pg (27.0-31.0); Mean Platelet Volume 7.7 fL (7.4-10.4); Platelet Count 231 thou/uL (130-400); RBC Distribution Width 11.7 % (11.5-14.5); Red Blood Cell (RBC) Count 3.75 mill/uL (4.20-5.40); White Blood Cell (WBC) Count 17.9 thou/uL (4.8-10.8)
[2021-05-22] MEDS: Piperacillin/Tazobactam 3.375 GM in Sodium Chloride 0.9% 100 ML IVPB SCH ×3 (05:54→23:05)
[2021-05-22 06:29] LABS: Anion Gap 15 mmol/L (10-20); BUN (Urea Nitrogen) 21 mg/dL (9.8-20.1); Calc. Creatinine Clearance 63 mL/min (70-130); Calcium 8.1 mg/dL (7.8-10.44); Carbon Dioxide 22 mmol/L (23-31); Chloride 109 mmol/L (98-107); Glucose 181 mg/dL (83-110); Potassium 3.6 mmol/L (3.5-5.1); Sodium 142 mmol/L (136-145)
[2021-05-22] MEDS: Trospium 20 MG TAB PO SCH (08:41)
[2021-05-22] MEDS: Saccharomyces boulardii 250 MG CAP PO SCH (08:41)
[2021-05-22] MEDS: Apixaban 2.5 MG TAB PO SCH ×2 (08:41→20:16)
[2021-05-22 17:51] LABS: Bilirubin Negative (Negative); Blood, Urine Negative (Negative); Clarity Turbid (Clear); Glucose, Urine (Dipstick) Normal (Negative); Ketone, Urine Negative (Negative); Leukocyte Negative Leu/uL (Negative); Nitrite Negative (Negative); Protein, Urine (Dipstick) 20 mg/dL (Neg-Trace); RBC/HPF 0-3 HPF (0-3); Specific Gravity, Urine 1.027 (1.002-1.036); Squamous Epithelial 0-3 HPF (0-3); Urobilinogen Normal mg/dL (Less than 2); WBC/HPF 0-3 HPF (0-3); pH, Urine 5.5 (5.0-9.0)
[2021-05-22 17:52] LABS: Bacteria/HPF 1+ HPF (None Seen)
[2021-05-22 17:54] LABS: Urine Culture Reflex Yes Yes
[2021-05-22] MEDS: Ondansetron ODT 4 MG TAB PO PRN (20:16)
[2021-05-22] MEDS: Lisinopril 20 MG TAB PO SCH (20:17)
[2021-05-22] MEDS: Atorvastatin Calcium 20 MG TAB PO SCH (20:17)
[2021-05-23] MEDS: Lactated Ringer's 1,000 ML IV SCH ×3 (06:06→23:01)
[2021-05-23] MEDS: Piperacillin/Tazobactam 3.375 GM in Sodium Chloride 0.9% 100 ML IVPB SCH ×3 (06:06→23:01)
[2021-05-23] MEDS: Saccharomyces boulardii 250 MG CAP PO SCH (08:48)
[2021-05-23] MEDS: Apixaban 2.5 MG TAB PO SCH ×2 (08:48→20:24)
[2021-05-23] MEDS: Trospium 20 MG TAB PO SCH (08:49)
[2021-05-23 18:40] LABS: Anion Gap 9 mmol/L (10-20); BUN (Urea Nitrogen) 10 mg/dL (9.8-20.1); Calc. Creatinine Clearance 85 mL/min (70-130); Calcium 7.9 mg/dL (7.8-10.44); Carbon Dioxide 25 mmol/L (23-31); Chloride 107 mmol/L (98-107); Glucose 118 mg/dL (83-110); Potassium 3.6 mmol/L (3.5-5.1); Sodium 137 mmol/L (136-145)
[2021-05-23] MEDS: Ondansetron ODT 4 MG TAB PO PRN (19:16)
[2021-05-23] MEDS: Atorvastatin Calcium 20 MG TAB PO SCH (20:24)
[2021-05-23] MEDS: Lisinopril 20 MG TAB PO SCH (20:24)
[2021-05-24] MEDS: Piperacillin/Tazobactam 3.375 GM in Sodium Chloride 0.9% 100 ML IVPB SCH ×2 (05:58→15:15)
[2021-05-24 07:02] LABS: #Basophils 0.1 thou/uL (0.0-0.2); #Eosinphils 0.1 thou/uL (0.0-0.7); #Lymphocytes 1.9 thou/uL (1.20-3.40); #Monocytes 1.1 thou/uL (0.11-0.59); #Neutrophils 12.1 thou/uL (1.40-6.50); %Basophils 0.4 % (0.0-1.0); %Eosinophils 0.5 % (0.0-10.0); %Lymphocytes 12.5 % (21.0-51.0); %Monocytes 7.2 % (0.0-10.0); %Neutrophils 79.4 % (42.0-75.0); Mean Corpuscular HGB CONC 34.9 g/dL (32.0-36.0); Mean Corpuscular Hemoglobin 36.5 pg (27.0-31.0); Mean Platelet Volume 7.9 fL (7.4-10.4); Platelet Count 174 thou/uL (130-400); RBC Distribution Width 11.4 % (11.5-14.5); Red Blood Cell (RBC) Count 3.29 mill/uL (4.20-5.40); White Blood Cell (WBC) Count 15.2 thou/uL (4.8-10.8)
[2021-05-24] MEDS: Apixaban 2.5 MG TAB PO SCH (09:04)
[2021-05-24] MEDS: Trospium 20 MG TAB PO SCH (09:04)
[2021-05-24] MEDS: Saccharomyces boulardii 250 MG CAP PO SCH (09:04)
[2021-05-24] MEDS: Ondansetron PF 4 MG/2 ML Vial IVP PRN ×2 (09:05→20:30)
[2021-05-24] MEDS ORDERED: GoLYTELY 4,000 ml Bottle PO SCH (17:00)
[2021-05-24] MEDS: Lactated Ringer's 1,000 ML IV SCH (17:31)
[2021-05-24] MEDS: Lisinopril 20 MG TAB PO SCH (20:30)
[2021-05-24] MEDS: Atorvastatin Calcium 20 MG TAB PO SCH (20:30)
[2021-05-25] MEDS: Lactated Ringer's 1,000 ML IV SCH ×2 (05:57→09:05)
[2021-05-25 06:55] LABS: #Lymphocytes 1.7 thou/uL (1.20-3.40); #Monocytes 0.9 thou/uL (0.11-0.59); #Neutrophils 10.4 thou/uL (1.40-6.50); %Basophils 0.1 % (0.0-1.0); %Eosinophils 0.1 % (0.0-10.0); %Lymphocytes 12.9 % (21.0-51.0); %Monocytes 7.1 % (0.0-10.0); %Neutrophils 79.8 % (42.0-75.0); Hemoglobin 11.1 g/dL (12.0-16.0); Mean Corpuscular HGB CONC 32.2 g/dL (32.0-36.0); Mean Corpuscular Hemoglobin 33.6 pg (27.0-31.0); Mean Platelet Volume 8.1 fL (7.4-10.4); Platelet Count 192 thou/uL (130-400); RBC Distribution Width 11.4 % (11.5-14.5); Red Blood Cell (RBC) Count 3.31 mill/uL (4.20-5.40)
[2021-05-25 07:16] LABS: ALT (SGPT) 24 U/L (8-55); AST (SGOT) 35 U/L (5-34); Albumin 3.1 g/dL (3.4-4.8); Alkaline Phosphatase 62 U/L (40-110); Anion Gap 15 mmol/L (10-20); BUN (Urea Nitrogen) 10 mg/dL (9.8-20.1); Bilirubin, Total 1.1 mg/dL (0.2-1.2); Calc. Creatinine Clearance 92 mL/min (70-130); Calcium 7.7 mg/dL (7.8-10.44); Carbon Dioxide 21 mmol/L (23-31); Chloride 105 mmol/L (98-107); Globulin 2.9 g/dL (2.4-3.5); Glucose 97 mg/dL (83-110); Potassium 3.8 mmol/L (3.5-5.1); Sodium 137 mmol/L (136-145)
[2021-05-25] MEDS ORDERED: Lidocaine 1% PF 5 ML VIAL ONE (08:05)
[2021-05-25] MEDS ORDERED: PROPOFOL 200 MG/20 ML VIAL ONE (08:05)
[2021-05-25] MEDS ORDERED: Ondansetron PF 4 MG/2 ML Vial ONE ×2 (08:05→08:48)
[2021-05-25] MEDS: Trospium 20 MG TAB PO SCH (09:06)
[2021-05-25] MEDS: Saccharomyces boulardii 250 MG CAP PO SCH (09:06)
[2021-05-25 15:42] LABS: Anion Gap 13 mmol/L (10-20); BUN (Urea Nitrogen) 9 mg/dL (9.8-20.1); Calc. Creatinine Clearance 103 mL/min (70-130); Calcium 7.7 mg/dL (7.8-10.44); Carbon Dioxide 21 mmol/L (23-31); Chloride 106 mmol/L (98-107); Glucose 72 mg/dL (83-110); Potassium 3.3 mmol/L (3.5-5.1); Sodium 137 mmol/L (136-145)
[2021-05-25] MEDS: Lisinopril 20 MG TAB PO SCH (20:28)
[2021-05-25] MEDS: Atorvastatin Calcium 20 MG TAB PO SCH (20:28)
[2021-05-26] MEDS: Lactated Ringer's 1,000 ML IV SCH ×3 (03:20→18:21)
[2021-05-26 06:41] LABS: Magnesium 1.7 mg/dL (1.6-2.6)
[2021-05-26] MEDS: Saccharomyces boulardii 250 MG CAP PO SCH (08:17)
[2021-05-26] MEDS: Trospium 20 MG TAB PO SCH (08:17)
[2021-05-26 16:26] LABS: Anion Gap 9 mmol/L (10-20); BUN (Urea Nitrogen) 7 mg/dL (9.8-20.1); Calc. Creatinine Clearance 100 mL/min (70-130); Calcium 8.1 mg/dL (7.8-10.44); Carbon Dioxide 25 mmol/L (23-31); Chloride 107 mmol/L (98-107); Glucose 134 mg/dL (83-110); Potassium 3.2 mmol/L (3.5-5.1); Sodium 138 mmol/L (136-145)
[2021-05-26] MEDS: Atorvastatin Calcium 20 MG TAB PO SCH (19:56)
[2021-05-26] MEDS: Lisinopril 20 MG TAB PO SCH (19:56)
[2021-05-27] MEDS: Lactated Ringer's 1,000 ML IV SCH ×2 (03:07→11:04)
[2021-05-27 06:02] LABS: #Basophils 0.1 thou/uL (0.0-0.2); #Eosinphils 0.1 thou/uL (0.0-0.7); #Lymphocytes 1.9 thou/uL (1.20-3.40); #Monocytes 1.1 thou/uL (0.11-0.59); #Neutrophils 4.1 thou/uL (1.40-6.50); %Basophils 0.8 % (0.0-1.0); %Lymphocytes 26.1 % (21.0-51.0); %Monocytes 14.5 % (0.0-10.0); %Neutrophils 56.6 % (42.0-75.0); Hemoglobin 10.7 g/dL (12.0-16.0); Mean Corpuscular HGB CONC 33.7 g/dL (32.0-36.0); Mean Corpuscular Hemoglobin 34.9 pg (27.0-31.0); Mean Platelet Volume 7.6 fL (7.4-10.4); Platelet Count 213 thou/uL (130-400); RBC Distribution Width 11.8 % (11.5-14.5); Red Blood Cell (RBC) Count 3.07 mill/uL (4.20-5.40); White Blood Cell (WBC) Count 7.3 thou/uL (4.8-10.8)
[2021-05-27 06:22] LABS: Magnesium 1.6 mg/dL (1.6-2.6)
[2021-05-27] MEDS: Saccharomyces boulardii 250 MG CAP PO SCH (07:48)
[2021-05-27 07:49] VITALS: TEMP 98.6
[2021-05-27] MEDS: Trospium 20 MG TAB PO SCH (07:49)
[2021-05-27 07:53] VITALS: BP 147/68
[2021-05-27] MEDS ORDERED: Magnesium 2 GM/50 ML 2 GM in Premix Bag 1 BAG IVPB SCH (13:45)
[2021-05-27 13:51] LABS: Potassium 3.4 mmol/L (3.5-5.1)
[2021-05-27] MEDS ORDERED: Potassium Chloride 20 MEQ TAB PO SCH (15:30)
[2021-05-30 13:39] LABS: Dopamine 24H Ur 68 ug/24 hr (0-510); Dopamine,Ur 33 ug/L (Undefined); Epinephrine 24H Ur 2 ug/24 hr (0-20); Epinephrine,Ur 1 ug/L (Undefined); Norephinephrine 24H U 33 ug/24 hr (0-135); Norephinephrine,Ur 16 ug/L (Undefined)
== END 2021-05-27 16:32 | disposition home or self-care (01) | DRG 394 ==
LOC: ERS 10:45 → T4-B 14:16
PROVIDERS: ADMIT Internal Medicine; ATTEND Internal Medicine
PROC: 0DBM8ZX Excision of Descending Colon, Via Natural or Artificial Opening Endoscopic, Diagnostic (ICD-10-PCS; principal; 2021-05-25)
PROC: 0DBL8ZX Excision of Transverse Colon, Via Natural or Artificial Opening Endoscopic, Diagnostic (ICD-10-PCS; 2021-05-25)
PROC: 0DBN8ZX Excision of Sigmoid Colon, Via Natural or Artificial Opening Endoscopic, Diagnostic (ICD-10-PCS; 2021-05-25)
DX: K55.9 Vascular disorder of intestine, unspecified (principal); K63.3 Ulcer of intestine; K21.9 Gastro-esophageal reflux disease without esophagitis; I10 Essential (primary) hypertension; E78.5 Hyperlipidemia, unspecified; G43.909 Migraine, unspecified, not intractable, without status migrainosus; Z20.822 Contact with and (suspected) exposure to COVID-19; K57.30 Diverticulosis of large intestine without perforation or abscess without bleeding; Z90.49 Acquired absence of other specified parts of digestive tract; Z90.710 Acquired absence of both cervix and uterus; Z79.899 Other long term (current) drug therapy; Z86.718 Personal history of other venous thrombosis and embolism
CPT/HCPCS: 36415; 74177; 80048; 80053; 81001; 82384; 83497; 83605; 83630; 83690; 83735; 84132; 84484; 84586; 85025; 87040; 87086; 87324; 87328; 87329; 87449; 88305; 93005; 96374; 96375; 96376; J2270; J2405; J2543; J2704; J3475; J3490; J7120; Q0162; Q9967; U0003; U0005

== ENCOUNTER 2021-06-27 08:31 | Outpatient (CLI) | payer MEDICARE, OTHER | END 2021-06-27 08:32 | disposition home or self-care (01) | LOC: BICULT 08:31 | PROVIDERS: ATTEND Urology | DX: D17.71 Benign lipomatous neoplasm of kidney (principal); N20.0 Calculus of kidney; N28.1 Cyst of kidney, acquired | CPT/HCPCS: 74018; 76770 ==

== ENCOUNTER 2021-10-08 07:31 | Emergency (ER) | payer MEDICARE, OTHER ==
[2021-10-08 09:18] LABS: #Basophils 0.1 thou/uL (0.0-0.2); #Eosinphils 0.1 thou/uL (0.0-0.7); #Lymphocytes 2.3 thou/uL (1.20-3.40); #Monocytes 0.8 thou/uL (0.11-0.59); #Neutrophils 3.2 thou/uL (1.40-6.50); %Basophils 1.7 % (0.0-1.0); %Eosinophils 1.1 % (0.0-10.0); %Lymphocytes 35.8 % (21.0-51.0); %Monocytes 11.7 % (0.0-10.0); %Neutrophils 49.7 % (42.0-75.0); Hemoglobin 14.4 g/dL (12.0-16.0); Mean Corpuscular HGB CONC 31.2 g/dL (32.0-36.0); Mean Corpuscular Hemoglobin 32.5 pg (27.0-31.0); Mean Platelet Volume 8.9 fL (7.4-10.4); Platelet Count 179 thou/uL (130-400); RBC Distribution Width 11.3 % (11.5-14.5); Red Blood Cell (RBC) Count 4.42 mill/uL (4.20-5.40); White Blood Cell (WBC) Count 6.4 thou/uL (4.8-10.8)
[2021-10-08 09:30] LABS: ALT (SGPT) 19 U/L (8-55); AST (SGOT) 23 U/L (5-34); Albumin 4.3 g/dL (3.4-4.8); Alkaline Phosphatase 70 U/L (40-110); Anion Gap 15 mmol/L (10-20); BUN (Urea Nitrogen) 13 mg/dL (9.8-20.1); Bilirubin, Total 0.7 mg/dL (0.2-1.2); CK (CPK) 53 U/L (29-168); Calc. Creatinine Clearance 0 mL/min (70-130); Calcium 9.6 mg/dL (7.8-10.44); Carbon Dioxide 27 mmol/L (23-31); Chloride 105 mmol/L (98-107); Estimated GFR 80; Globulin 3.5 g/dL (2.4-3.5); Glucose 107 mg/dL (83-110); Potassium 4.4 mmol/L (3.5-5.1); Protein, Total 7.8 g/dL (5.8-8.1); Sodium 143 mmol/L (136-145)
[2021-10-08 09:34] LABS: CKMB 0.9 ng/mL (0-6.6)
[2021-10-08] MEDS ORDERED: Ondansetron ODT 4 MG TAB ONE (10:13)
[2021-10-08] MEDS ORDERED: Ketorolac Tromethamine 30 MG/ML VIAL ONE (10:13)
[2021-10-08] MEDS ORDERED: Acetaminophen 500 MG TAB ONE (10:14)
[2021-10-08] MEDS ORDERED: Mag-Al 1200 mg/1200 mg/30 ML UDCUP ONE (10:14)
[2021-10-08] MEDS ORDERED: Lidocaine Viscous Sol 2% 15 ml UD Cup ONE (10:14)
== END 2021-10-08 12:20 | disposition home or self-care (01) ==
LOC: ERS 07:31
DX: R07.2 Precordial pain (principal); R51.9 Headache, unspecified; K21.9 Gastro-esophageal reflux disease without esophagitis; I10 Essential (primary) hypertension; E78.5 Hyperlipidemia, unspecified; M41.9 Scoliosis, unspecified; Z79.01 Long term (current) use of anticoagulants; Z79.899 Other long term (current) drug therapy
CPT/HCPCS: 36415; 70450; 80053; 82550; 82553; 83880; 84484; 85025; 93005; 96372; J1885; Q0162

== ENCOUNTER 2022-01-17 12:45 | Outpatient (CLI) | payer MEDICARE, OTHER | END 2022-01-17 12:46 | disposition home or self-care (01) | LOC: MRI 12:45 | PROVIDERS: ATTEND Nurse Practitioner Family | DX: M47.26 Other spondylosis with radiculopathy, lumbar region (principal); M51.16 Intervertebral disc disorders with radiculopathy, lumbar region; M48.061 Spinal stenosis, lumbar region without neurogenic claudication; M47.27 Other spondylosis with radiculopathy, lumbosacral region; M48.07 Spinal stenosis, lumbosacral region; M48.05 Spinal stenosis, thoracolumbar region; M41.9 Scoliosis, unspecified | CPT/HCPCS: 72148 ==

== ENCOUNTER 2022-05-16 09:28 | Outpatient (CLI) | payer MEDICARE, OTHER | END 2022-05-16 09:29 | disposition home or self-care (01) | LOC: BICMAMMO 09:28 | PROVIDERS: ATTEND Family Medicine | DX: Z12.31 Encounter for screening mammogram for malignant neoplasm of breast (principal); N63.10 Unspecified lump in the right breast, unspecified quadrant; M81.0 Age-related osteoporosis without current pathological fracture; M85.852 Other specified disorders of bone density and structure, left thigh; M85.851 Other specified disorders of bone density and structure, right thigh; Z91.89 Other specified personal risk factors, not elsewhere classified | CPT/HCPCS: 77063; 77067; 77080 ==

== ENCOUNTER 2022-07-05 15:54 | Outpatient (CLI) | payer MEDICARE, OTHER | END 2022-07-05 15:55 | disposition home or self-care (01) | LOC: ULT 15:54 | PROVIDERS: ATTEND Urology | DX: N28.1 Cyst of kidney, acquired (principal); N20.0 Calculus of kidney; D17.71 Benign lipomatous neoplasm of kidney | CPT/HCPCS: 76770 ==

== ENCOUNTER 2022-11-21 13:14 | Outpatient (CLI) | payer MEDICARE, OTHER | END 2022-11-21 13:15 | disposition home or self-care (01) | LOC: BICCT 13:14 | PROVIDERS: ATTEND Internal Medicine Gastroenterology | DX: K55.9 Vascular disorder of intestine, unspecified (principal); K57.30 Diverticulosis of large intestine without perforation or abscess without bleeding; K57.90 Diverticulosis of intestine, part unspecified, without perforation or abscess without bleeding | CPT/HCPCS: 74174; 82565 ==

== ENCOUNTER 2023-05-23 11:10 | Outpatient (CLI) | payer MEDICARE, OTHER | END 2023-05-23 11:11 | disposition home or self-care (01) | LOC: BICMAMMO 11:10 | PROVIDERS: ATTEND Family Medicine | DX: Z12.31 Encounter for screening mammogram for malignant neoplasm of breast (principal); Z91.89 Other specified personal risk factors, not elsewhere classified | CPT/HCPCS: 77063; 77067 ==

== ENCOUNTER 2024-02-07 08:34 | Outpatient (CLI) | payer MEDICARE, OTHER ==
[2024-02-07] MEDS ORDERED: Magnevist 469MG/ML 20 ML VIAL ONE (12:36)
== END 2024-02-07 08:35 | disposition home or self-care (01) ==
LOC: MRI 08:34
PROVIDERS: ATTEND Neurological Surgery
DX: R26.89 Other abnormalities of gait and mobility (principal); I67.82 Cerebral ischemia
CPT/HCPCS: 36415; 70553; 76376; 82565

== ENCOUNTER 2024-12-25 19:33 | Observation (INO) | payer MEDICARE, OTHER ==
[~2024-12-25 19:33] MED LIST changes: -Iopamidol-370 76% 500 ML 1 ML ONE; +Iopamidol-370 76% 500 ML MDV (1 ML CHARGE) ONE
[2024-12-25 20:17] LABS: #Basophils 0.06 10x3/uL (0.0-0.2); #Eosinophils 0.07 10x3/uL (0.0-0.7); #Monocytes 0.91 10x3/uL (0.11-0.59); #Neutrophils 4.62 10x3/uL (1.40-6.50); %Basophils 0.7 % (0.0-1.0); %Eosinophils 0.8 % (0.0-10.0); %Lymphocytes 31.3 % (21.0-51.0); %Monocytes 11.0 % (0.0-10.0); %Neutrophils 56.0 % (42.0-75.0); Hematocrit 41.2 % (36.0-47.0); Hemoglobin 13.0 g/dL (12.0-16.0); Mean Corpuscular Hemoglobin 32.4 pg (27.0-31.0); Mean Corpuscular Volume 102.7 fL (78.0-98.0); Platelet Count 236 10x3/uL (130-400); Red Blood Cell (RBC) Count 4.01 mill/uL (4.20-5.40); White Blood Cell (WBC) Count 8.27 10x3/uL (4.8-10.8)
[2024-12-25 20:38] LABS: ALT (SGPT) 17 U/L (Less than 34); AST (SGOT) 28 U/L (11-34); Albumin 3.9 g/dL (3.1-4.5); Alkaline Phosphatase 75 U/L (40-110); Anion Gap 16 mmol/L (10-20); BUN (Urea Nitrogen) 20 mg/dL (9.8-20.1); Bilirubin, Total 0.4 mg/dL (0.3-1.2); Calc. Creatinine Clearance 0 mL/min (70-130); Calcium 9.4 mg/dL (7.8-10.44); Carbon Dioxide 24 mmol/L (23-31); Chloride 104 mmol/L (98-107); Globulin 3.6 g/dL (2.4-3.5); Glucose 132 mg/dL (83-110); Lipase 23 U/L (8-78); Magnesium 2.0 mg/dL (1.6-2.6); Potassium 3.9 mmol/L (3.5-5.1); Sodium 140 mmol/L (136-145)
[2024-12-25 20:39] LABS: INR-International Normal Ratio 1.1; PTT 28.8 sec (22.9-36.1); Prothrombin Time 14.1 sec (12.0-14.7)
[2024-12-25 21:14] LABS: Bacteria/HPF None Seen HPF (None Seen); CAUTI Indications for Culture Pelvic or flank pain; Glucose, Urine (Dipstick) Normal (Negative); Leukocyte Negative Leu/uL (Negative); Protein, Urine (Dipstick) Negative (Neg-Trace); RBC/HPF 0-3 HPF (0-3); Specific Gravity, Urine 1.015 (1.002-1.036); WBC/HPF None Seen HPF (0-3)
[2024-12-25 21:17] LABS: Urine Culture Reflex No No
[2024-12-25] MEDS ORDERED: Ondansetron PF 4 MG/2 ML Vial ONE (21:50)
[2024-12-25] MEDS ORDERED: Aspirin Chewable 81 MG TAB ONE (21:51)
[2024-12-25] MEDS ORDERED: Ondansetron PF 4 MG/2 ML Vial IVP PRN (23:45)
[2024-12-25] MEDS ORDERED: Calcium Carbonate 500 MG ChewTAB PO PRN (23:45)
[2024-12-25] MEDS ORDERED: Acetaminophen 325 MG TAB PO PRN (23:45)
[2024-12-26 00:50] VITALS: BMI 27.0
[2024-12-26 03:47] LABS: #Basophils 0.04 10x3/uL (0.0-0.2); #Eosinophils 0.05 10x3/uL (0.0-0.7); #Monocytes 1.24 10x3/uL (0.11-0.59); #Neutrophils 7.66 10x3/uL (1.40-6.50); %Basophils 0.4 % (0.0-1.0); %Eosinophils 0.5 % (0.0-10.0); %Lymphocytes 17.2 % (21.0-51.0); %Monocytes 11.4 % (0.0-10.0); %Neutrophils 70.1 % (42.0-75.0); Hematocrit 38.8 % (36.0-47.0); Hemoglobin 12.4 g/dL (12.0-16.0); Mean Corpuscular Hemoglobin 32.8 pg (27.0-31.0); Mean Corpuscular Volume 102.6 fL (78.0-98.0); Platelet Count 213 10x3/uL (130-400); Red Blood Cell (RBC) Count 3.78 mill/uL (4.20-5.40); White Blood Cell (WBC) Count 10.91 10x3/uL (4.8-10.8)
[2024-12-26 04:20] LABS: ALT (SGPT) 18 U/L (Less than 34); AST (SGOT) 34 U/L (11-34); Albumin 3.5 g/dL (3.1-4.5); Alkaline Phosphatase 62 U/L (40-110); Anion Gap 14 mmol/L (10-20); BUN (Urea Nitrogen) 15 mg/dL (9.8-20.1); Bilirubin, Total 0.6 mg/dL (0.3-1.2); Calc. Creatinine Clearance 76 mL/min (70-130); Calcium 9.3 mg/dL (7.8-10.44); Carbon Dioxide 24 mmol/L (23-31); Chloride 105 mmol/L (98-107); Globulin 3.1 g/dL (2.4-3.5); Glucose 133 mg/dL (83-110); Potassium 4.1 mmol/L (3.5-5.1); Sodium 139 mmol/L (136-145)
[2024-12-26] MEDS: Aspirin 81 mg Enteric Coated Tablet PO SCH (08:14)
[2024-12-26 12:37] VITALS: BP 107/62; TEMP 98.4
[2024-12-27] MEDS ORDERED: FLU (Fluad Triv) 25-26 (65UP)PF 45 MCG/0.5 ML Syringe IM ONE (09:00)
== END 2024-12-26 16:20 | disposition home or self-care (01) ==
LOC: ERS 19:33 → 2SE 23:17
PROVIDERS: ADMIT Student in an Organized Health Care Education/Training Program; ATTEND Internal Medicine
DX: H81.10 Benign paroxysmal vertigo, unspecified ear (principal); I10 Essential (primary) hypertension; E78.5 Hyperlipidemia, unspecified; Z79.899 Other long term (current) drug therapy
CPT/HCPCS: 70450; 70496; 70498; 70551; 71045; 80053 ×2; 81001; 82962; 83605; 83690; 83735; 83880; 84484; 85025 ×2; 85610; 85730; 87428; 93005; 94760; 96374; 96375; 99285; J2060; 36415; 36416; G0378; Q9967

== ENCOUNTER 2025-02-11 14:52 | Outpatient (CLI) | payer MEDICARE, OTHER | END 2025-02-11 14:53 | disposition home or self-care (01) | LOC: ULT 14:52 | PROVIDERS: ATTEND Nurse Practitioner Family | DX: R09.89 Other specified symptoms and signs involving the circulatory and respiratory systems (principal) | CPT/HCPCS: 93880 ==